=== PATIENT | male | born 1950 | race Caucasian/White ===

== ENCOUNTER 2024-02-18 09:43 | Outpatient (CLI) | payer MEDICARE, SELFPAY ==
--- NOTE | ~2024-02-18 | XR_ITS ---
XR abdomen/kub 1V 02/18/2024 10:09 INDICATION: Renal stone TECHNIQUE: KUB COMPARISON: None FINDINGS: Bowel gas pattern is normal. There is no evidence of free air, mass, organomegaly, ascites or obstruction. No abnormal calculi are seen. The bones appear intact. Moderate lumbar spondylosis . There are surgical changes of the left pelvis. IMPRESSION: 1: No acute abdominal abnormality identified. Reviewed, dictated and finalized at location B.
== END 2024-02-18 09:44 | disposition home or self-care (01) ==
LOC: ANHIMG 09:52
PROVIDERS: PCP Urology; Visit Provider Urology
DX: N20.0 Calculus of kidney (principal)
CPT/HCPCS: 74018

== ENCOUNTER 2025-03-02 11:17 | Outpatient (CLI) | payer MEDICARE, SELFPAY ==
--- NOTE | ~2025-03-02 | XR_ITS ---
XR abdomen/kub 1V Ordering provider: Gómez Johnson MD History: . Calcium kidney stone . Comparison: February 18, 2024 FINDINGS: BOWEL: Nonobstructive bowel gas pattern. ORGANOMEGALY: None. SIGNIFICANT PATHOLOGIC CALCIFICATIONS: None. OTHER: No free air is seen under the diaphragm. Postoperative changes in the left acetabulum. Bilater al hip severe osteoarthritic changes. Degenerative changes of the spine. Bilateral sacroiliacs. Pubic symphysitis. IMPRESSION: NO ACUTE ABDOMINAL FINDINGS. Reviewed, dictated and finalized at location A.
--- OUTSIDE RECORDS SUMMARY | 2025-03-02 12:04 | XMS_ITS | Encounter Summary ---
Author Name [facility] Organization [facility] Address [address] [place] [address] Care Team Providers Care Managing Director Atlas Name Role Phone BRIAN ANTON Unavailable Unavailable Insurance Providers: All historical and current Section Date Range: From patient's date of to the date document was created. This section includes the names of all active insurance providers for the patient. Insurance Provider Type of Coverage Plan Name Start of Policy Coverage End of Policy Coverage Group Number Member ID Insurance Provider's Telephone Number Policy Saini's Name Patient's Relationship to Policy Saini [place] SUPPLEMEN GE[place] MEDIC ARE SUPPL EMEMT Nov 27, 2023 [id number] [phone] MELINA, ADRIANA PATIENT ANTHEM [place] MEDICARE SUPPLEMEN GENA MEDIC ARE SUPPL EMEMT Nov 27, 2023 [id number] [phone] MELINA, ADRIANA PATIENT ANTHEM [place] MEDICARE SUPPLEMEN EGNA MEDIC ARE SUPPL EMENT Nov 27, 2023 [id number] [phone] MELINA, ADRIANA PATIENT [place] MED[place]ARE SUPPLEMEN GENA MEDIC ARE SUPPL EMEMT Nov 27, 2023 [id number] [phone] MELINA, ADRIANA PATIENT MEDICARE (WNR) MEDICARE (M) PART A Jun 27, 2013 PART A [id number] MELINA, ADRIANA PATIENT MEDICARE (WNR) MEDICARE (M) PART B Jun 27, 2013 PART B [id number] MELINA, ADRIANA PATIENT MEDICARE (WNR) MEDICARE (M) PART A Jun 27, 2013 PART A [id number] MELINA, ADRIANA PATIENT MEDICARE (WNR) MEDICARE (M) PART B Jun 27, 2013 PART B [id number] MELINA, ADRIANA PATIENT Selected Encounter This section includes the information on record at [place] for the Encounter. Date/Time Encounter Type Encounter Description Reason Provider Source Dec 07, 2024 09:30 AM HEARING AID, DIGIT, BIN, BTE AUDIOLOGY ICD-10-CM H90.3 Sensorineural hearing loss, bilateral CLEEK,NEFTALY L IHE Encounter Template Text not used by [place] Assessments - Encounter Diagnoses This section includes the primary and secondary diagnoses documented for the Encounter. Date/Time Primary/Secondary Diagnosis Diagnosis Name Provider Source Dec 07, 2024 09:58 AM PRIMARY Sensorineural hearing loss, bilateral STEVO,CLARIBEL SHAFFER [facility] Plan of Treatment: Future Appointments (+ 6 months) and Future Tests (+/- 45 days) The Plan of Treatment section includes future care activities for the patient [facility] [place] [facility] This section includes future appointments and future orders which are active, pending or scheduled. Future Appointments This section includes appointments that were scheduled to occur 6 months from the date of the Encounter, up to a maximum of 20 appointments. The data comes from all [facility]. Appointment Date/Time Appointment Type Appointme nt Facility Name Jan 14, 2025 10:30 AM AMBULATORY - SURGERY BAKARI N [facility] Jan 19, 2025 02:00 PM AMBULATORY - NONE [facility] Active, Pending, and Scheduled Orders This section includes a listing of several types of active, pending, and scheduled orders, including clinic medications orders, diagnostic test orders, procedure orders and consult orders; where the start date of the order is 45 days before the date of the Encounter or 45 days after the date of theEncounter. The data comes from all [facility]. Test Date/Time Test Type Test Details Facility Name Nov 26, 2024 11:17 AM Consult Order [facility]-COLONOSCOPY SUR[facility]ANCE OUTPT [id number] Cons Skein Yarn Dyer [facility] Social History: Smoking Status (Most current) and Tobacco Use (All prior to encounter date) This section includes the most current, and the historical, smoking and tobacco- related health factors from the [place] facility where the Encounter took place. Current Smoking Status This section includes the most current smoking, or tobacco-related health factor, from the [place] facility where the Encounter took place. Date/Time Current Smoking Status Comment Facil ity Sep 08, 2007 02:21 PM LIFETIME NON-USER OF TOBACCO [facility] Advance Directives: All historical and current Section Date Range: From patient's date of to the date document was created. This section includes ALL of a patient's completed or amended [place] Advance and Rescinded Directives. The entries below indicate that a directive exists for the patient, but an actual copy is not included with this document. The data comes from all [place] facilities. Date Advance Directives Provider Source Dec 30, 2019 ADVANCE DIRECTIVE DAKOTAH MELÉNDEZ ERICKA [facility] Encounter Notes: All associated encounter notes This section contains the clinical notes associated to the Encounter. Date/Time Encounter Note(s) Provider Source Dec 07, 2024 09:26 AM AUDIOLOGY PROGRESS NOTE: LOCAL TITLE: AUDIOLOGY HEARING AID ISSUE [place] STANDARD TITLE: AUDIOLOGY PROGRESS NOTE DATE OF NOTE: DEC 07, 2024@09:26 ENTRY DATE: DEC 07, 2024@09:26:38 AUTHOR: CLARIBEL WHITESIDE COSIGNER: NEFTALY BUSTAMANTE URGENCY: STATUS: COMPLETED AUDIOLOGY HEARING AID ISSUE [place] Has ADDENDA HEARING AID ISSUE- PHONAK S: C/O: reports for hearing aid issuance. Previous hearing aid user: [x] yes [] no H/O: Date of last hearing evaluation: 10/29/2024 Type of hearing loss established: [x] Sensorineural [] Mixed [] Conductive O: Otoscopic inspection revealed: Clear ear canals [x] R [x] L Non occluding wax [] R [] L Occluding wax [] R [] L Functional limitations [x] none Strengths: Motivated user Family Members/support person present during fitting: [] Yes [x] No A: Hearing aids were programmed for initial hearing aid fitting/issue. Hearing aid(s) issued: Phonak Right ear: Audeo I90-R SN: [id number] Fittin Left ear: Audeo I90-R SN: [id number] Fittin Dome size: [] Open: [x] Vented: small [] Power: [] Other: Salon Customer Experience Specialist: [] Standard: [x] Medium: 1M [] Power: Battery Size(s): [] Rechargeable with power pack accessory [x] Rechargeable [] 312 [] 13 [] 675 Additional Accessories: N/A Hearing Aids issued in [place] [x] Yes Supplies Ordered: Cerustops and small vented domes Real Ear Verification Results: [] Excellent [x] Good [] Fair [] Poor Volume controls: [x] Enabled [] Disabled [] N/A Push buttons: [x] Enabled []VC [] Disabled [] N/A Wireless function: [x] Enabled [] Disabled [] N/A Manual programs activated: [x] None [] Speech in noise [] Comfort in noise [] Zoomcontrol [] Speech in wind [] Public t-coil [] Mute [] Other: Patient received standardized instruction regarding: [x] Parts of the hearing aid(s) [x] Recommended use and wear time [x] Proper insertion/removal of hearing aid(s) [x] Volume control use of hearing aid(s) [x] Care/maintenance of hearing aid(s) [x] Battery management, life expectancy, hazard warning [x] Supply order process via [facility] [x] Hearing aid repair process via [facility] [x] Use of hearing protection in noise [x] Realistic expectations of hearing aids, including: [x] Expected adjustment process [x] Importance of consistent hearing aid use [x] Appropriate expectations for hearing aid feedback [x] Expected benefit from hearing aids, including situations in which communication may remain challenging, even with hearing aids Patient was given 20-30 minute HUMPHREY trial during today's appointment. Patient was instructed on how to pair the hearing aids to any assistive listening devices issued today, and was provided with information and support resources related to pairing the hearing aids to a cell phone, if applicable. Demonstration was provided for how to change any replaceable parts, including domes, wax guards, and tubes as applicable. Patient was provided with a copy of this clinic's [facility] booklet at today's appointment. Total time spent on this standardized orientation instruction: 15-30 minutes. Patient prognosis to treatment: [] Good [x] Fair [] Poor Comments: Hearing aids were paired to 's phone and to the Dexetra saad. Bluetooth connection and saad functionality was demonstrated. [facility] reported understanding. The [facility]'s backup pair of hearing aids: Right ear: Audeo [id number] SN: [id number] was sent in for repair and mailed back to the [facility] at the address on file. /kaity/ CLARIBEL WHITESIDE Audiology Printed Circuit Board Preassembler Signed: 12/07/2024 10:01 /kaity/ NEFTALY Beckford, ANNE-A CLINICAL PROGRAM AND RESEARCH COORDINATOR Cosigned: 12/07/2024 10:03 12/07/2024 ADDENDUM STATUS: COMPLETED This provider has reviewed this progress note, and is in agreement with the audiology encounter and clinical thinking of this progress note. /kaity/ NEFTALY Beckford, ANNE-A CLINICAL PROGRAM AND RESEARCH COORDINATOR Signed: 12/07/2024 10:03 CLARIBEL WHITESIDE [facility]
--- OUTSIDE RECORDS SUMMARY | 2025-03-02 12:04 | XMS_ITS | Clinical Summary ---
Author Organization [facility] Address [facility] [place] [address] Care Team Providers Care Complaint Specialist Name Role Phone Chester Richardson MD Primary Care Provider [phone] Avelino Balderas MD Unavailable [phone] Martin Newman MD Unavailable [phone] Mark Godwin MD Unavailable [phone] Allergies Active Allergy Reactions Criticality Noted Date Comments Lisinopril Cough 07/22/2023 Simvastatin Myalgias 03/24/2014 Tramadol Unknown 07/08/2024 Medications Cholecalciferol (VITAMIN D) 1000 UNIT tablet Take 1 tablet (1,000 Units total) by mouth daily. Active omeprazole 20 MG capsuleIndicati ons:acid reflux Take 1 capsule (20 mg total) by mouth daily. Indications: acid reflux 1 Active vitamin B-12 100 MCG tabletIndicatio ns:supplement Take 0.5 tablets (50 mcg total) by mouth daily. Indications: supplement 1 Active aspirin 81 MG chewable tabletIndicatio ns:heart health Chew 1 tablet (81 mg total) by mouth daily. Indications: heart health 1 Active Acetaminophen (TYLENOL ARTHRITIS EXT RELIEF OR)Indications: pain Take 650 mg by mouth every 6 (six) hours as needed (pain). Indications: pain 1 Active metoprolol succinate ER 25 MG 24 hr tabletIndicatio ns:blood pressure Take 0.5 tablets (12.5 mg total) by mouth daily. Indications: blood pressure Every other day (M,W,F,) 1 Active amLODIPine 10 MG tablet Take 1 tablet (10 mg total) by mouth daily. 1 Active Levothyroxine Sodium (EUTHYROX OR) Take by mouth every morning. 2 Active tamsulosin (FLOMAX) 0.4 MG CapIndications: BPH with obstruction/low er urinary tract symptoms Take 1 capsule (0.4 mg total) by mouth nightly. 90 capsule 2 2 Active atorvastatin (LIPITOR) 20 MG tablet Take 1 tablet (20 mg total) by mouth nightly at bedtime. Active gabapentin (NEURONTIN) 300 MG capsule Take 1 capsule (300 mg total) by mouth 2 (two) times daily. 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 Acute deep vein thrombosis ( DVT) of distal vein of left lower extremity ([facility]) 03/04/2019 Elevated platelet count 03/04/2019 Hypertension 02/23/2019 Hyperlipidemia 02/23/2019 Left axis deviation 02/23/2019 Cardiac arrest ([facility]) 01/26/2019 Acute deep vein thrombosis ( DVT) of tibial vein of left lower extremity ([facility]) 01/21/2019 Leukocytosis, unspecified type 01/19/2019 Anemia, unspecified type 01/19/2019 DVT (deep venous thrombosis) ([facility]) 0 01/19/2019 Anticoagulation management encounter 01/19/2019 Closed wedge compression fra cture of fifth thoracic vertebra, initial encounter ([facility]) 01/04/2019 Closed wedge compression fra cture of fourth thoracic vertebra, initial encounter ([facility]) 01/04/2019 Closed fracture of one rib o f right side with routine healing 01/04/2019 Closed fracture of one rib o f left side with routine healing 01/04/2019 Closed displaced fracture of proximal third of scaphoid of right wrist with routine healing 01/04/2019 Dislocation of hip, posterio r, closed, left, initial encounter 01/04/2019 Closed displaced fracture of posterior column of left acetabulum with routine healing 01/04/2019 Fall from roof, initial encounter 01/04/2019 Closed posterior dislocation of left hip, initia l encounter 01/04/2019 Resolved Problems Problem Noted Date Diagnosed Date Resolved Date Elevated PSA 05/01/2022 09/20/2022 Encounters Date Type Department Care Team Description 03/02/2025 Travel 02/25/2025 Telephone [facility] am [address] [place] [id number] Mark Godwin MD Appointment Request 02/10/2025 9:23 AM CDT - 02/10/2025 11:59 PM CDT Hospital Encounter [facility] [address] [place] [address] Nirav Rabago MD Probst, Samantha A, OSITO Dysphagia ([facility]) Discharge Disposition: Home or Self Care (Routine Discharge) 02/10/2025 [facility]phone [facility] [address] [place] [address] Nirav Rabago MD Results (Speech swallow) 02/10/2025 Travel 01/17/2025 10:05 AM CDT - 01/17/2025 11:59 PM CDT Hospital Encounter [facility] [address] [place] [address] Nirav Rabago MD Discharge Disposition: Home or Self Care (Routine Discharge) 01/17/2025 [facility] [address] [place] [address] Nirav Rabago MD Results (Esophagram) 01/17/2025 Travel 01/04/2025 10:00 AM CDT Office Visit [facility] [place] [address] [place] [address] Nirav Rabago MD Consult For Colonoscopy 01/04/2025 Scan [facility] Scanned, [facility] 01/04/2025 Travel from Last 3 Months Family History Medical History Relation Comments CABG Brother Acute myelogenous leukemia Daughter 1 Benign prostatic hyperplasia Father CHF Father Arthritis Mother Coronary artery disease Mother Benign prostatic hyperplasia Paternal Grandfathe r Hypertension Son Stent Cardiac Son Relation Status Comments Brother Daughter 1 (Age 14) Daughter 2 Alive Father Mother Paternal Grandfather Son Alive Social History Tobacco Use Types Packs/Day Years Used Date Smoking Tobacco: Never Passive Smoke Exposure: Never Smokeless Tobacco: Never Tobacco Cessation:Counseling Given: Not Answered Alcohol Use Standard Drinks/Week Comments No 0 (1 standard drink = 0.6 oz pur e alcohol) AUDIT-C Answer Date Recorded Frequency of Alcohol Consumption Never 01/08/2019 Average Number of Drinks 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019 Frequency of Binge Drinking 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12/25 PHQ-2 Answer Date Recorded Patient Health Questionnaire-2 Score 0 01/04/2025 Sex and Gender Information Value Date Recorded Sex Assigned at Male 01/04/2025 10:01 AM CDT 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 Gender Identity 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Sexual Orientation 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[place] , Agent [place]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No t on file 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Last Filed Vital Signs Vital Sign Reading Time Taken Comments Blood Pressure 130/72 01/04/2025 10:14 AM CDT Pulse 51 01/04/2025 10:05 AM CDT Temperature 36.7 C (98 F) 01/04/2025 10:05 AM CDT Respiratory Rate 16 01/04/2025 10:0 5 AM CDT Oxygen Saturation 97% 01/04/2025 10: 05 AM CDT Inhaled Oxygen Concentration - - Weight 107.3 kg (236 lb 9.6 oz) 025 10:05 AM CDT Height 175.3 cm (5' 9 ) 01/04/2025 10:0 5 AM CDT Body Mass Index 34.94 01/04/2025 10:05 AM CDT Plan of Treatment Upcoming Encounters Date Type Department Care Team (Latest Contact Info) Description 03/17/2025 9:28 AM CDT Hospital Encounter [facility] [address], [place] [address] Nirav Rabago MD [address] [facility], [address] [place] [id number] 03/17/2025 9:28 AM CDT - 03/17/2025 10:15 AM CDT [facility] [address], [place] [address] Nirav Rabago MD [address] [facility], [address] [place] [phone] COLONOSCOPY WITH BIOPSY AND/OR POLYPECTOMY 07/11/2025 9:45 AM CDT Office Visit [facility] [place] [address] [place] [address] Mark Godwin MD [address] [place] [address] Scheduled Procedures Name Priority Associated Diagnoses Date/Ti me COLONOSCOPY WITH BIOPSY Z86.0101 03/17/2025 9:28 AM CDT Health Maintenance Due Date Last Done Comments Hepatitis C 1968 Annual Medicare Wellness Visit 2013 ASCVD LDL 05/28/2022 05/28/2021 RSV Immunization or 60+ Years (1 - 1-dose 75+ series) 2023 COVID-19 Vaccine ( season) 2024 10/02/2022, 09/12/2021, 01/17/2021, Additional history exists DTaP, Tdap and Td Vaccines (2 - Td or Tdap) 12/24/2028 12/24/2018, 05/10/2009 Pneumococcal Vaccine: 50+ Years Completed 12/24/2018, 06/24/2016 Colorectal Cancer Screening FIT/FOBT (1 Year) Discontinued 01/24/2019, 01/18/2019, 01/15/2019 AAA SCREENING Completed 04/10/2020 Zoster Vaccines Completed 05/30/2020, 12/21/2019 PHQ-2 (Physician [place]) Completed 01/04/2025 Meningococcal B Vaccine Aged Out No l onger eligible based on patient's age to complete this topic Meningococcal Vaccine Aged Out No josr nithya eligible based on patient's age to complete this topic RSV Immunizations Under 20 Months Aged Out No longer eligible based on patient's age to complete this topic Goals Goal Patient Goal Type Associated Problems Recent Progress Patient-Stated? Author Autogenerat ed Goal Care Plan Autogenerated Problem No Celsa Noble RN Medical Devices Implanted Type Area Outside Deliverer Device Identifier Shelf Expiration Date Model / Serial / Lot Chest Wires Dental Theresa K Wire Checo 6 In X .045 In - [id number] Implanted:Qty: 1 on 01/08/2019 by Luana Chi MD at [facility] Right: Wrist [employer] 08/26/2027 [id number] / / [id number] K Wire Checo 6 In X .045 In - [id number] Implanted:Qty: 1 on 01/08/2019 by Luana Chi MD at [facility] Right: Wrist [employer] 11/26/2028 [id number] / / [id number] Mini Quickanchor Plus Implanted:Qty: 1 on 01/08/2019 by Horacio Begum MD at [facility] Right: Finger [employer] - [employer] 02/24/2020 [id number] / / [id number] Screws Implanted:Qty: 1 on 01/08/2019 by Luana Chi MD at [facility] Right: Finger AT2-[id number] / / N/A Screw Synthes 3.5 Cortex Stardrive 26mm - [id number] Implanted:Qty: 1 on 01/11/2019 by Thien Mirza MD at [facility] Left: Acetabulum SYNTHES 02.200.026 / / NA Screw Synthes 3.5 Cortex Stardrive 32mm - [id number] Implanted:Qty: 1 on 01/11/2019 by Thien Mirza MD at [facility] Left: Acetabulum SYNTHES 02.200.032 / / NA Screw Synthes 3.5 Cortex Stardrive 34mm - [id number] Implanted:Qty: 1 on 01/11/2019 by Thien Mirza MD at [facility] Left: Acetabulum SYNTHES 02.200.034 / / NA Plate Synthes 3.5 Low Profile Recon 8 Hole - [id number] Implanted:Qty: 1 on 01/11/2019 by Thien Mirza MD at [facility] Left: Acetabulum SYNTHES 245.028 / / NA Screw Synthes 3.5 Cortex Stardrive 55mm - [id number] Implanted:Qty: 1 on 01/11/2019 by Thien Mirza MD at [facility] Left: Acetabulum SYNTHES 02.200.055 / / NA Plate Synthes One-Third Tubular With Collar 3 Holes/37mm - [id number] Implanted:Qty: 2 on 01/11/2019 by Thien Mirza MD at [facility] Left: Acetabulum SYNTHES 241.33 / / NA Screw Synthes 3.5 Cortex Stardrive 30mm - [id number] Implanted:Qty: 4 on 01/11/2019 by Thien Mirza MD at [facility] Left: Acetabulum SYNTHES 02.200.030 / / NA Description:1 REMOVED/WASTED WRONG SIZE Screw Synthes 3.5 Cortex Stardrive 24mm - [id number] Implanted:Qty: 1 on 01/11/2019 by Thien Mirza MD at [facility] Left: Acetabulum SYNTHES 02.200.024 / / NA Explanted Type Area Outside Deliverer Device Identifier Shelf Expiration Date Model / Serial / Lot Pin Implanted:Qty: 3 Explanted:Qty: 3 on 01/08/2019 at [facility] Right: [id number] / / N/A Mini Drill Implanted:Qty: 1 Explanted:Qty: 1 on 01/08/2019 at [facility] Right: Finger 01/09/2019 [id number] / / N/A Screw Synthes 3.5 Cortex Stardrive 38mm - [id number] Explanted:Qty: 1 on 01/11/2019 by Thien Mirza MD at [facility] Left: Acetabulum SYNTHES 02.200.038 / / NA Description:WRONG SIZE 2.5 Mm Drill Bit Explanted:Qty: 1 on 01/11/2019 by Thien Mirza MD at [facility] Left: Acetabulum SYNTHES 315.92 / / NA Procedures Procedure Name Priority Date/Time Associated Diagnosis Comments XR SPEECH SWALLOW CHERRI (MODIFIED BARIUM SWALLOW STUDY AKA CASTILLO) Routine 02/10/2025 10:00 AM CDT Oropharyngeal dysphagia XR ESOPHAGRAM/BARIUM SWALLOW Routine 01/17/2025 11:20 AM CDT Oropharyngeal dysphagia LIPID PANEL Routine 05/28/2021 6:[address] ABD+PEL KIDNEY STONE Routine 04/10/2020 8:04 AM CDT Renal stone OCCULT BLOOD, FECES, SCREENING Nurse Collected Priority 01/24/2019 4:00 AM CDT from Last 3 Months or Most Recently Relevant to Health Maintenance Results * XR SPEECH SWALLOW CHERRI (MODIFIED BARIUM SWALLOW STUDY AKA CASTILLO) (02/10/2025 10:00 AM CDT) Anatomical Region Laterality Modality NA Radiographic Anne-Marie ging, Radiographic Imaging 02/10/2025 10:0 3 AM CDT Impressions 02/10/2025 10:41 AM CDT Impression: Swallowing abnormalities as described above The procedure was performed by Sariah Mendes RPA under the direct supervision of Jacob Alejandro MD. Dictated By: Sariah Mendes on 02/10/2025 10:03 AM Ordered By: NIRAV RABAGO Interpreted By: Sariah Mendes, 02/10/2025 10:03 AM Narrative 02/10/2025 10:41 [place] [address] DYNAMIC PHARYNGEAL FLUOROSCOPY WITH EVALUATION. INDICATIONS: Abnormal findings on Esophagram COMPARISON: Esophagram dated 01/17/2025 TECHNIQUE: Under fluoroscopic observation, in the lateral projection, the patient ingested multiple consistencies of food and liquid. Radiation dose reduction technique(s) were used. FINDINGS: After ingestion of multiple can consistencies of food and liquid, there is vallecular and piriform residue, to varying degrees on all consistencies. Deep penetration is seen on thin and nectar consistency. Decreased volume improves this continuation. Chin tuck technique had no affected. No evidence of aspiration. Permanent fluoroscopic and digitally recorded images were obtained and stored for review The procedure was performed in concert with speech pathology. Please see speech pathology report for further details and recommendations. Radiation exposure index: Dose Area Product 12/29/2007 mGy-cm2 Fluoroscopy time: 1:18 minutes and Total number of Fluoroscopic images: 840 Procedure Note Jacob Alejandro MD - 02/10/2025 [place] [address] DYNAMIC PHARYNGEAL FLUOROSCOPY WITH EVALUATION. INDICATIONS: Abnormal findings on Esophagram COMPARISON: Esophagram dated 01/17/2025 TECHNIQUE: Under fluoroscopic observation, in the lateral projection, thepatient ingested multiple consistencies of food and liquid. Radiation dosereduction technique(s) were used. FINDINGS: After ingestion of multiple can consistencies of food andliquid, there is vallecular and piriform residue, to varying degrees onall consistencies. Deep penetration is seen on thin and nectarconsistency. Decreased volume improves this continuation. Chin tucktechnique had no affected. No evidence of aspiration. Permanent fluoroscopic and digitally recorded images were obtained andstored for review The procedure was performed in concert with speech pathology. Please seespeech pathology report for further details and recommendations. Radiation exposure index: Dose Area Product 12/29/2007 mGy-cm2 Fluoroscopy time: 1:18 minutes and Total number of Fluoroscopic images:840 Impression: Swallowing abnormalities as described above The procedure was performed by Sariah Mendes RPA under the directsupervision of Jacob Alejandro MD. Dictated By: Sariah Mendes on 02/10/2025 10:03 AM Ordered By: NIRAV RABAGO Interpreted By: Sariah Mendes, 02/10/2025 10:03 AM Nirav Rabago MD FLUOROSCOPY Final Result * XR ESOPHAGRAM/BARIUM SWALLOW (01/17/2025 11:20 AM CDT) Anatomical Region Laterality Modality Chest, Abdomen Radiographic Anne-Marie ging, Radiographic Imaging 01/17/2025 12:3 8 PM CDT Impressions 01/17/2025 2:17 PM CDT IMPRESSION: 1. Small hiatal hernia. 2. Deep laryngeal penetration with suggestion of aspiration as described above. The procedure was performed by Sariah Mendes RPA, under the direct supervision of Dr. Lc Mcneil. Dictated By: Sariah Mendes on 01/17/2025 12:38 PM Ordered By: NIRAV RABAGO Interpreted By: Sariah Mendes, 01/17/2025 12:38 PM Narrative 01/17/2025 2:17 PM CDT [address] [address] ESOPHOGRAM. INDICATIONS: dysphagia COMPARISON: No existing relevant imaging study available TECHNIQUE: Under pulsed fluoroscopic observation, the patient ingested effervescent crystals, thin barium, thick barium, and a 13 mm barium tablet. Radiation dose reduction technique(s) were used. FINDINGS: Limited evaluation demonstrates deep laryngeal penetration. Subsequent imaging suggests silent aspiration. The esophagus is normal in course and caliber with no mucosal masses or strictures. Esophageal motility is normal. There is a small sliding hiatal hernia. Gastroesophageal reflux was not seen on today's study. Radiation exposure index: Dose Area Product 7613mGy-cm2 Fluoroscopy time 0:48 minutes and Total number of Fluoroscopic images: 79 ? Permanent fluoroscopic images were obtained and stored for review Procedure Note Lc Mcneil DO - 01/17/2025 [place] [address] [place] [address] ESOPHOGRAM. INDICATIONS: dysphagia COMPARISON: No existing relevant imaging study available TECHNIQUE: Under pulsed fluoroscopic observation, the patient ingestedeffervescent crystals, thin barium, thick barium, and a 13 mm bariumtablet. Radiation dose reduction technique(s) were used. FINDINGS: Limited evaluation demonstrates deep laryngeal penetration.Subsequent imaging suggests silent aspiration. The esophagus is normal in course and caliber with no mucosal masses orstrictures. Esophageal motility is normal. There is a small sliding hiatal hernia. Gastroesophageal reflux was notseen on today's study. Radiation exposure index: Dose Area Product 7613mGy-cm2 Fluoroscopy time 0:48 minutes and Total number of Fluoroscopic images:79 ? Permanent fluoroscopic images were obtained and stored for review IMPRESSION: 1. Small hiatal hernia. 2. Deep laryngeal penetration with suggestion of aspiration as describedabove. The procedure was performed by Sariah Mendes RPA, under the directsupervision of Dr. cL Mcneil. Dictated By: Sariah Mendes on 01/17/2025 12:38 PM Ordered By: NIRAV RABAGO Interpreted By: Sariah Mendes, 01/17/2025 12:38 PM us Nirav Rabago MD FLUOROSCOPY Final Result * LIPID PANEL (05/28/2021 6:15 PM CDT) CHOLESTEROL 120 MG/DL 05/28/2021 6:54 PM CDT [facility] Comment:DESIRABLE: <200 TRIGLYCERIDES 105 MG/DL 05/28/2021 6:54 PM CDT [facility] Comment:<150 NORMAL HDL 40 >39 MG/DL 05/28/2021 6:54 PM CDT [facility] LDL (CALCULATED) 59 MG/DL 05/28/20 6:54 PM CDT [facility] Comment:<100 OPTIMAL VLDL CALCULATION 21 MG/DL 05/28/20 6:54 PM CDT [facility] Comment:REFERENCE RANGE NOT ESTABLISHED CHOL/HDL RATIO 3.0 05/28/2021 6:54 PM CDT [facility] Comment:REFERENCE RANGE NOT ESTABLISHED LDL/HDL 1.5 05/28/2021 6:54 PM CDT [facility] Comment:REFERENCE RANGE NOT ESTABLISHED NON HDL CHOLESTEROL 80 MG/DL 05/28/2021 6:54 PM CDT [facility] Comment:REFERENCE RANGE NOT ESTABLISHED 05/28/2021 6:15 PM CDT us Vince Echevarria MD LABORATORY Final Resul t [facility] [address] [place] [address], [id number] * CT ABD+PEL KIDNEY STONE (04/10/2020 8:04 AM CDT) Anatomical Region Laterality Modality Abdomen Computed Tomogra phy 04/10/2020 10:0 2 AM CDT Impressions 04/10/2020 10:10 AM CDT IMPRESSION: 1. Routine CT of the abdomen and pelvis without contrast. No comparison. Radiation dose reduction technique was utilized. 2. There are no acute findings. There is an 8.2 mm calculus in the lower pole right kidney without obstruction. No left-sided renal calculi or urinary bladder calculi. 3. Normal appendix and normal gallbladder. Small hiatal hernia. 4. Mild fatty infiltration of the liver without mass. All other visualized noncontrast visceral structures are within normal limits. No free fluid or free air. 5. No bowel obstruction. Atherosclerotic normal-sized aorta. No pathologic lymphadenopathy. Numerous sigmoid diverticuli without diverticulitis. 6. Lung bases with mild scar formation. No infiltrate or effusion. Advanced coronary artery calcifications.. Degenerative change in lumbar spine. Intact left iliac bone hardware. Fragmentation of the anterior superior iliac spine consistent with patient's given history of bone graft procedure. Mild overlying soft tissue swelling/edema. Interpreted By: Angy Pappas, 04/10/2020 10:02 AM Narrative 04/10/2020 10:10 AM CDT IMAGING STUDIES: CT ABD+PEL KIDNEY STONE DATE: 04/10/2020 7:54 AM CLINICAL HISTORY: Flank pain, recurrent stone disease suspected . Procedure Note Qasim Pappas MD - 04/10/2020 IMAGING STUDIES: CT ABD+PEL KIDNEY STONE DATE: 04/10/20207:54 AM CLINICAL HISTORY: Flank pain, recurrent stone disease suspected . IMPRESSION: 1. Routine CT of the abdomen and pelvis without contrast. Nocomparison. Radiation dose reduction technique was utilized. 2. There are no acute findings. There is an 8.2 mm calculus in thelower pole right kidney without obstruction. No left-sided renal calculi or urinary bladder calculi. 3. Normal appendix and normal gallbladder. Small hiatal hernia. 4. Mild fatty infiltration of the liver without mass. All othervisualized noncontrast visceral structures are within normal limits. No free fluidor free air. 5. No bowel obstruction. Atherosclerotic normal-sized aorta. No pathologic lymphadenopathy. Numerous sigmoid diverticuli without diverticulitis. 6. Lung bases with mild scar formation. No infiltrate or effusion. Advanced coronary artery calcifications.. Degenerative change in lumbar spine. Intact left iliac bone hardware. Fragmentation of the anterior superior iliac spine consistent with patient's given history of bonegraft procedure. Mild overlying soft tissue swelling/edema. Interpreted By: Angy Pappas, 04/10/2020 10:02 AM Avelino Balderas MD CT Final Result * (ABNORMAL) OCCULT BLOOD, FECES, SCREENING (01/24/2019 4:00 AM CDT) OCCULT BLOOD FECAL NEGATIVE NEGATIVE 01/25/2019 11:18 AM CDT [facility] COLLECTION DATE [id number] 01/25/2019 11:18 AM CDT [facility] OCCULT BLOOD SPEC 2 NO SAMPLE RECEIVED (A) NEGATIVE 01/25/2019 11:18 AM CDT [facility] OCCULT BLOOD SPEC 3 NO SAMPLE RECEIVED (A) NEGATIVE 01/25/2019 11:18 AM CDT [facility] STOOL SPECIMEN / Unknown 01/24/2019 4:00 AM CDT Ashutosh Xiao MD BODY FLUIDS AND STOOLS ORDERABLE S Final Result [facility] [address] [place] [address], [id number] from Last 3 Months or Most Recently Relevant to Health Maintenance Additional Health Concerns Active Problems Noted Date Diagnosed Date Autogenerated Problem 02/09/2025 Insurance MEDICARE [facility] MEDICARE Advance Directives Documents on File Type Date Recorded Patient Readiness Paraprofessional Expl anation Power of Screen Print Operator 01/08/2019 10:25 AM 11/25 POA FOR HEALTH CARE * Full Code (Latest Code Status on File) Date Activated Date Inactivated Comments 06/10/2021 12:38 PM * Full Code Date Activated Date Inactivated Comments 06/03/2021 8:42 AM 06/05/2021 7:32 PM * Full Code Date Activated Date Inactivated Comments 05/29/2021 6:04 PM 06/02/2021 3:29 PM * Full Code Date Activated Date Inactivated Comments 05/12/2020 12:59 PM 05/12/2020 4:44 PM * Full Code Date Activated Date Inactivated Comments 01/04/2019 4:56 PM 01/29/2019 3:53 PM Care Teams Complaint Specialist Relationship Specialty Start Date End Date Chester Richardson MD [address] [place] [id number] PCP - General INTERNAL MEDICINE 02/18/19 Avelino Balderas MD [address] [place] [address] Physician UROLOGY 04/12/20 Martin Newman MD [address] [place] [id number] FAMILY PRACTICE 12/01/24 Mark Godwin MD [address] [place] [id number] Consulting Physician CARDIOVASCULAR DISEASE 02/25/25
--- OUTSIDE RECORDS SUMMARY | 2025-03-02 12:04 | XMS_ITS | Continuity of Care Document ---
Author Name [facility] Organization [facility] Care Team Providers Care Clinical Assistant Name Role Phone [facility] Unavailable Unavailable Problems Combined list of problems from Department of Defense and [facility] facilities. It does not include entries that were removed or entered in error. Problem Status Onset Date Problem Type Date of Resolution Comments Source Aneurysm of ascending aorta Active Condition [facility] Benign Prostatic Hypertrophy with Outflow Obstruction ([facility] [place] [id number]) Active Condition [facility] CAD - Coronary Artery Disease ([facility] [place] [id number]) Active Condition Jun 23, 2023 Entered By: BRIAN ANTON Comment: 3 vessel CABG 05/29/21, SVG to 1st obtuse marginal, SVG to posterior descending, and left IM to LADSep 2022 Entered By: BRIAN ANTON Comment: Echo on07/16/[address] William [id number]% mild concentric LVH with grade 1 diastolic dysfuction, mod to severe LAE and mild aortic root dilation. [facility] Carotid artery stenosis Active Condition Jun 23, 2023 Entered By: BRIAN ANTON Comment: 05/21/21 0-39% stenosis on bilateral ICA [facility] Chronic kidney disease stage 3 Active Condition [facility] Edema of lower leg Active Condition [facility] Exposure to potentially hazardous substance Active Condition [facility] Folic acid deficiency Active Condition [facility] Hearing Loss ([facility] [place] [id number]) Active Condition [facility] History of deep vein thrombosis Active Condition Jun 23, 2023 Entered By: BRIAN ANTON Comment: December 2018 after orthopedic sugery - ORIF left acetabular fx, ORIF right scaphoid fx after a fall on 01/04/19 [facility] Hyperlipidemia Active Condition [facility] Hypertension Active Condition [facility] Hypothyroidism ([facility] [place] [id number]) Active Condition [facility] Lymphocytosis Active Condition Aug Entered By: BRIAN ANTON Comment: 08/12/23 seen by oncologist, Dr. Johnathon Faith for lymphocytes 3000 and low IgA level. plan to do PBS, flow cytometry and repeat immunoglobulin level.Jul 13, 2024 Entered By: BRIAN ANTON Comment: 06/16/[address] Faith - clinically stable. PBS today and FU in 1 yr. 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 Enamorado - TA x1, sigmoid diverticulosis, repeat in 3 yrs [facility] Pulmonary hypertension Active Condition [facility] Renal stone Active Condition Jun 23, 2023 Entered By: BRIAN ANTON Comment: s/p multiple lithotripsies [facility] Sleep apnea Active Condition Jun 23, 2023 Entered By: BRIAN ANTON Comment: on CPAP [facility] Tremor Active Condition [facility] Vitamin B12 Deficiency ([facility] [place] [id number]) Active Condition [facility] Vitamin D Deficiency ([facility] [place] [id number]) Active Condition [facility] Allergic rhinitis * (ICD-9-CM 477.9) Inactive Condition 12/24/2018 [facility] Calculus of Kidney (ICD-9-CM 592.0) Inactive Condition 12/24/2018 [facility] Hip: arthralgia (pain on rotation, pain in groin) * Inactive Condition 12/24/2018 [facility] Hyperlipidemia * (ICD-9-CM 272.4) Inactive Condition 12/24/2018 [facility] Hypertension * (ICD-9-CM 401.9) Inactive Condition 12/24/2018 [facility] Low Back Pain * (ICD-9-CM 724.2) Inactive Condition 12/24/2018 [facility] Obstructive sleep apnea syndrome Inactive Condition 06/23/2023 [facility] Sciatica * (ICD-9-CM 724.3) Inactive Condition 12/24/2018 [facility] Vitamin D deficiency (SNOMED CT [id number]) Inactive Condition 12/24/2018 [facility] Diagnosis: ICD-10-CM H40.003 Preglaucoma, unspecified, bilateral Active Diagnosis [facility] Diagnosis: ICD-10-CM H90.3 Sensorineural hearing loss, bilateral Active Diagnosis [facility] Diagnosis: ICD-10-CM H90.6 Mixed conductive and sensorineural hearing loss, bilateral Active Diagnosis [facility] Diagnosis: ICD-10-CM I10 Essential (primary) hypertension Active Diagnosis [facility] Diagnosis: ICD-10-CM H90.A31 Mix cndct/snrl hear loss,uni,r ear w rstrcd hear cntra side Active Diagnosis [facility] Diagnosis: ICD-10-CM L57.0 Actinic keratosis Active Diagnosis [facility] Diagnosis: ICD-10-CM 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 Medication Details Route Status Patient Instructions Prescription Expires Prescription Number Last Dispense Date Ordering Provider Order Date Order Qty Source AMLODIPINE BESYLATE 10MG TAB TAKE ONE TABLET BY MOUTH ONCE A DAY FOR HIGH BLOOD PRESSURE ORAL ACTIVE 10/02/2025 [id number] NONI ANTON 2024 90 [facility] AMLODIPINE BESYLATE 10MG TAB TAKE ONE TABLET BY MOUTH ONCE A DAY FOR HIGH BLOOD PRESSURE ORAL DISCONT INUED 10/02/2024 [id number] NONI ANTON 2022 90 [facility] ASPIRIN 81MG TAB,EC TAKE ONE TABLET BY MOUTH ONCE A DAY ORAL ACTIVE HERNANDEZ -BORIS MELENDEZ A W 2019 [facility] ATORVASTATI N CA 40MG TAB TAKE ONE-HALF TABLET BY MOUTH EVERY EVENING FOR HIGH CHOLESTE ROL ORAL ACTIVE 10/02/2025 [id number] 5 NONI ANTON 2024 45 [facility] ATORVASTATI N CA 40MG TAB TAKE ONE-HALF TABLET BY MOUTH EVERY EVENING FOR HIGH CHOLESTE ROL ORAL DISCONT INUED 10/02/2024 [id number] 4 NONI ANTON 2022 45 [facility] CHOLECALCIF POLA 25MCG (1,000UNIT) TAB TAKE ONE TABLET BY MOUTH ONCE A DAY ORAL ACTIVE NONI ANTON 2022 [facility] CYANOCOBALA MIN 1000MCG TAB TAKE ONE TABLET BY MOUTH ONCE A DAY ORAL ACTIVE BORIS ARELLANO 2020 [facility] FLUOROURACI L 5% CREAM,TOP APPLY THIN FILM TO AFFECTED AREA(S) TWICE DAILY AVOID SUN EXPOSURE . FOLLOW DIRECTIO NS CAREFULL Y FOR PROPER HANDLING /DISPOSA L. WAIT UNTIL THE TREATED AREA ON BRIDGE OF NOSE HAS HEALED. EXPECT REDNESS AND IRRITATI ON AVOID SUN EXPOSURE . FOLLOW DIRECTIO NS CAREFULL Y FOR PROPER HANDLING /DISPOSA L. WAIT UNTIL THE TREATED AREA ON BRIDGE OF NOSE HAS HEALED. EXPECT REDNESS AND IRRITATI ON TOPICA L 02/06/2024 [id number] DAISY MOORE 2023 40 [facility] FOLIC ACID 0.4MG TAB TAKE ONE TABLET BY MOUTH ONCE A DAY ORAL ACTIVE NONI ANTON 2022 [facility] GABAPENTIN 300MG CAP TAKE ONE CAPSULE BY MOUTH THREE TIMES A DAY -- MAY CAUSE DROWSINE SS ORAL ACTIVE 03/23/2025 [id number] 5 RIRI DICKEY 2024 90 [facility] GABAPENTIN 300MG CAP TAKE ONE CAPSULE BY MOUTH THREE TIMES A DAY ORAL 11/17/2024 [id number] 4 RIRI DICKEY DEENA 2023 90 [facility] LEVOTHYROXI NE NA 100MCG TAB (SYNTHROID) TAKE ONE TABLET BY MOUTH EVERY MORNING BEFORE A MEAL FOR HYPOTHYR OIDISM TAKE 30 MINUTES BEFORE FOOD. TAKE SEPARATE LY FROM ALL OTHER MEDICATI ONS. ORAL DISCONT INUED (EDIT) 10/02/2024 [id number] 4 NONI ANTON 2022 90 [facility] LEVOTHYROXI NE NA 88MCG TAB TAKE ONE TABLET BY MOUTH EVERY MORNING BEFORE A MEAL FOR HYPOTHYR OIDISM TAKE 30 MINUTES BEFORE FOOD. TAKE SEPARATE LY FROM ALL OTHER MEDICATI ONS. ORAL ACTIVE 10/02/2025 [id number] 5 NONI ANTON 2023 90 [facility] METOPROLOL SUCCINATE 25MG TAB,SA TAKE ONE-HALF TABLET BY MOUTH ONCE A DAY FOR HIGH BLOOD PRESSURE SWALLOW WHOLE, DO NOT CRUSH OR CHEW (TABLETS MAY BE CUT IN HALF). ORAL ACTIVE 10/02/2025 [id number] 5 NONI ANTON 2023 45 [facility] METOPROLOL SUCCINATE 25MG TAB,SA TAKE ONE-HALF TABLET BY MOUTH ONCE A DAY FOR HIGH BLOOD PRESSURE SWALLOW WHOLE, DO NOT CRUSH OR CHEW (TABLETS MAY BE CUT IN HALF). ORAL DISCONT INUED 10/02/2024 [id number] 4 NONI ANTON 2022 45 [facility] OMEPRAZOLE 20MG CAP,EC TAKE 1 CAPSULE BY MOUTH ONCE A DAY ORAL ACTIVE HERNANDEZ -MELENDEZ,RIT A W 2021 [facility] TAMSULOSIN HCL 0.4MG CAP TAKE ONE CAPSULE BY MOUTH EVERY EVENING FOR BENIGN PROSTATI C HYPERPLA ALAINA APPROXIM ATELY 30 MINUTES AFTER THE SAME MEAL EACH DAY ORAL ACTIVE 10/02/2025 [id number] 4 NONI ANTON 2023 90 [facility] [facility] TAMSULOSIN HCL 0.4MG CAP TAKE ONE CAPSULE BY MOUTH EVERY EVENING FOR BENIGN PROSTATI C HYPERPLA ALAINA APPROXIM ATELY 30 MINUTES AFTER THE SAME MEAL EACH DAY ORAL DISCONT INUED 10/02/2024 [id number] 4 NONI ANTON 2022 90 [facility] Allergies, Adverse Reactions, Alerts Combined list of allergies from Department of Defense and [facility] facilities. It does not include entries that were removed or entered in error. Substance Category Reaction Severity Reaction type Status Date Reported Comments Source LISINOPRIL Propensity to adverse reactions to drug (finding) Hyperkalemi a MODERATE active 1 [facility] SIMVASTATIN Propensity to adverse reactions to drug (finding) Cramp active 4 [facility] Immunizations Combined list of available immunizations from the Department of Defense and Veterans Affairs facilities. Immunization Series Date Given Administered By Site Reaction Lot Number CVX Code Drug Quantitative Equity Head Status Comments Source INFLUENZA, HIGH-DOSE, TRIVALENT, PF 2023 MIGUEL DIOP LEFT DELTO ID [id number] 135 complet ed [facility] INFLUENZA, HIGH-DOSE, QUADRIVALENT 2022 MIGUEL DIOP RIGHT DELTO ID [id number] 197 complet ed [facility] INFLUENZA, UNSPECIFIED FORMULATION 2021 88 complet ed HISTORICA L INFORMATI ON - FROM PATIENT'S RECALL, [facility] INFLUENZA, HIGH-DOSE, QUADRIVALENT 1 2021 197 complet ed HISTORICA L INFORMATI ON - FROM OTHER REGISTRY, [facility] COVID-19 (MODERNA), MRNA, LNP-S, BIVALENT, PF, 50 MCG/0.5 ML OR 25MCG/0.25 ML DOSE 4 2021 229 complet ed HISTORICA L INFORMATI ON - FROM OTHER REGISTRY, [facility] INFLUENZA, INJECTABLE, QUADRIVALENT, PRESERVATIVE FREE 2021 150 complet ed [facility] COVID-19 (MODERNA), MRNA, LNP-S, PF, 100 MCG/0.5ML DOSE OR 50 MCG/0.25ML DOSE 3 2020 207 complet ed [facility] COVID-19 (MODERNA), MRNA, LNP-S, PF, 100 MCG/0.5ML DOSE OR 50 MCG/0.25ML DOSE 2 2020 207 complet ed [facility] COVID-19 (MODERNA), MRNA, LNP-S, PF, 100 MCG/0.5ML DOSE OR 50 MCG/0.25ML DOSE [address] [facility] INFLUENZA, INJECTABLE, QUADRIVALENT, PRESERVATIVE FREE 2019 150 complet ed [facility] ZOSTER RECOMBINANT 2 2019 187 complet ed [facility] ZOSTER RECOMBINANT 1 2019 187 [facility] INFLU[facility], INJECTABLE, QUADRIVALENT, PRESERVATIVE FREE 2018 150 complet ed [facility] PNEUMOCOCCAL POLYSACCHARID E PPV23 2018 33 complet [facility] TDAP 2018 115 complet [facility] INFLUENZA, INJECTABLE, QUADRIVALENT, PRESERVATIVE FREE 2017 150 complet ed [facility] INFLUENZA, INJECTABLE, QUADRIVALENT, PRESERVATIVE FREE 2016 150 complet ed [facility] INFLUENZA, SEASONAL, INJECTABLE, PRESERVATIVE FREE 2016 140 complet ed [facility] PNEUMOCOCCAL CONJUGATE PCV 13 2015 133 complet ed [facility] INFLUENZA, UNSPECIFIED FORMULATION 2014 88 complet ed [facility] INFLUENZA, SEASONAL, INJECTABLE, PRESERVATIVE FREE 2013 140 complet ed [facility] INFLUENZA, UNSPECIFIED FORMULATION 2011 88 complet ed [facility] INFLUENZA, SEASONAL, INJECTABLE, PRESERVATIVE FREE 2011 140 complet ed [facility] INFLUENZA, SEASONAL, INJECTABLE, PRESERVATIVE FREE 2011 140 complet ed [facility] INFLUENZA, UNSPECIFIED FORMULATION 2009 88 complet ed [facility] INFLUENZA, UNSPECIFIED FORMULATION 2009 88 complet ed [facility] INFLUENZA, UNSPECIFIED FORMULATION 2009 88 complet ed [facility] INFLUENZA, UNSPECIFIED FORMULATION 2009 88 complet [facility]-H1N 1-09, ALL FORMULATIONS 2009 128 complet ed [facility] TD(ADULT) UNSPECIFIED FORMULATION 2008 139 complet ed [facility] INFLUENZA, UNSPECIFIED FORMULATION 2006 88 complet ed [facility] Results Combined list of recent chemistry, hematology and other laboratory results from Department of Defense and [facility], ranging from 15 months to all on record, depending upon the facility. Order Name Results Value Reference Range Date Interpretation Specimen Comments Source PSA (MA) PROSTATE SPECIFIC AG [MASS/VOLUM E] IN SERUM OR PLASMA 1.6 ng/mL 0.0 - 4.0 09/21 Specimen Type: SERUM No comment entered. Ordering Provider: NONI ANTON Report Released Date/Time : Oct 02, 2023 11:37 AM Reporting Lab: [address] [phone] 8 Performin g Lab: [address] [phone] [facility] TSH (PA-PB) THYROTROPIN [UNITS/VOLU ME] IN SERUM OR PLASMA 0.160 u[IU]/mL 0.470 - 5.000 09/21 L Specimen Type: SERUM No comment entered. Ordering Provider: NONI ANTON Report Released Date/Time : Oct 02, 2023 11:37 AM Reporting Lab: [address] [phone] 8 Performin g Lab: [place] [phone] 8 [facility] TSH (PA-PB) THYROXINE (T4) FREE [MASS/VOLUM E] IN SERUM OR PLASMA 1.35 ng/mL 0.70 - 1.48 09/21 Specimen Type: SERUM No comment entered. Ordering Provider: NONI ANTON Report Released Date/Time : Oct 02, 2023 11:37 AM Reporting Lab: [address] [phone] 8 Performin g Lab: [place] [id number] [place] [address] HEPATIC FUNCTION PANEL (MA) PROTEIN [MASS/VOLUM E] IN SERUM OR PLASMA 7.4 g/dL 6.0 - 8.6 09/21 Specimen Type: PLASMA No comment entered. Ordering Provider: NONI ANTON Report Released Date/Time : Oct 02, 2023 11:37 AM Reporting Lab: [address] [phone] 8 Performin g Lab: [address] [phone] 8 [facility] HEPATIC FUNCTION PANEL (MA) ALBUMIN [MASS/VOLUM E] IN SERUM OR PLASMA 4.2 g/dL 3.4 - 5.0 09/21 Specimen Type: PLASMA No comment entered. Ordering Provider: NONI ANTON Report Released Date/Time : Oct 02, 2023 11:37 AM Reporting Lab: [address] [phone] 8 Performin g Lab: [place] [phone] 8 [facility] HEPATIC FUNCTION PANEL (MA) BILIRUBIN.T OTAL [MASS/VOLUM E] IN SERUM OR PLASMA 1.2 mg/dL 0.2 - 1.2 09/21 Specimen Type: PLASMA No comment entered. Ordering Provider: NONI ANTON Report Released Date/Time : Oct 02, 2023 11:37 AM Reporting Lab: [address] [phone] 8 Performin g Lab: [address] [phone] 8 [facility] HEPATIC FUNCTION PANEL (MA) ALKALINE PHOSPHATASE [ENZYMATIC ACTIVITY/VO LUME] IN SERUM OR PLASMA 99 U/L 40 - 150 09/21 Specimen Type: PLASMA No comment entered. Ordering Provider: NONI ANTON Report Released Date/Time : Oct 02, 2023 11:37 AM Reporting Lab: [address] [phone] 8 Performin g Lab: [address] [phone] 8 [facility] HEPATIC FUNCTION PANEL (MA) ASPARTATE AMINOTRANSF ERASE [ENZYMATIC ACTIVITY/VO LUME] IN SERUM OR PLASMA 19 U/L 5 - 34 09/21 Specimen Type: PLASMA No comment entered. Ordering Provider: NONI ANTON Report Released Date/Time : Oct 02, 2023 11:37 AM Reporting Lab: [place] [phone] Performin g Lab: [facility] [address] [facility] [phone] 8 [facility] HEPATIC FUNCTION PANEL (MA) ALANINE AMINOTRANSF ERASE [ENZYMATIC ACTIVITY/VO LUME] IN SERUM OR PLASMA 22 U/L 8 - 40 09/21 Specimen Type: PLASMA No comment entered. Ordering Provider: NONI ANTON Report Released Date/Time : Oct 02, 2023 11:37 AM Reporting Lab: [facility] [address] [place] [phone] 8 Performin g Lab: [facility] [address] [place], [place] [phone] 8 [facility] HEPATIC FUNCTION PANEL (MA) GLOBULIN [MASS/VOLUM E] IN SERUM BY CALCULATION 3.2 09/21 Specimen Type: PLASMA No comment entered. Ordering Provider: NONI ANTON Report Released Date/Time : Oct 02, 2023 11:37 AM Reporting Lab: [place] [phone] 8 Performin g Lab: [address] 8 [facility] HEPATIC FUNCTION PANEL (MA) BILIRUBIN.C ONJUGATED [MASS/VOLUM E] IN SERUM OR PLASMA 0.5 mg/dL 0.0 - 0.5 09/21 Specimen Type: PLASMA No comment entered. Ordering Provider: NONI ANTON Report Released Date/Time : Oct 02, 2023 11:37 AM Reporting Lab: [facility] [address] [place] [phone] 8 Performin g Lab: [place] [phone] 8 [facility] HEPATIC FUNCTION PANEL (MA) ALBUMIN/JUAN BULIN [MASS RATIO] IN SERUM OR PLASMA 1.3 09/21 Specimen Type: PLASMA No comment entered. Ordering Provider: NONI ANTON Report Released Date/Time : Oct 02, 2023 11:37 AM Reporting Lab: [facility] [address] [place] [phone] 8 Performin g Lab: [place] [phone] 8 [facility] BASIC METABOLIC PANEL CREATININE [MASS/VOLUM E] IN SERUM OR PLASMA 1.6 mg/dL .7 - 1.3 09/21 H Specimen Type: PLASMA No comment entered. Ordering Provider: NONI ANTON Report Released Date/Time : Oct 02, 2023 11:37 AM Reporting Lab: [facility] [address] [place] [phone] 8 Performin g Lab: [address] [phone] 8 [facility] BASIC METABOLIC PANEL UREA NITROGEN [MASS/VOLUM E] IN SERUM OR PLASMA 19 mg/dL 9.0 - 25.0 09/21 Specimen Type: PLASMA No comment entered. Ordering Provider: NONI ANTON Report Released Date/Time : Oct 02, 2023 11:37 AM Reporting Lab: [address] [phone] 8 Performin g Lab: [place] [phone] 8 [facility] BASIC METABOLIC PANEL GLUCOSE [MASS/VOLUM E] IN SERUM OR PLASMA 93 mg/dL 72 - 99 09/21 Specimen Type: PLASMA No comment entered. Ordering Provider: NONI ANTON Report Released Date/Time : Oct 02, 2023 11:37 AM Reporting Lab: [address] [phone] 8 Performin g Lab: [address] [phone] 8 [facility] BASIC METABOLIC PANEL SODIUM [MOLES/VOLU ME] IN SERUM OR PLASMA 139 meq/L 136 - 145 09/21 Specimen Type: PLASMA No comment entered. Ordering Provider: NONI ANTON Report Released Date/Time : Oct 02, 2023 11:37 AM Reporting Lab: [address] [phone] 8 Performin g Lab: [address] [phone] 8 [facility] BASIC METABOLIC PANEL POTASSIUM [MOLES/VOLU ME] IN SERUM OR PLASMA 5.0 meq/L 3.5 - 5 09/21 Specimen Type: PLASMA No comment entered. Ordering Provider: NONI ANTON Report Released Date/Time : Oct 02, 2023 11:37 AM Reporting Lab: [address] [phone] 8 Performin g Lab: [address] [phone] 8 [facility] BASIC METABOLIC PANEL CHLORIDE [MOLES/VOLU ME] IN SERUM OR PLASMA 105 meq/L 98 - 107 09/21 Specimen Type: PLASMA No comment entered. Ordering Provider: NONI ANTON Report Released Date/Time : Oct 02, 2023 11:37 AM Reporting Lab: [address] [phone] 8 Performin g Lab: [address] [phone] 8 [facility] BASIC METABOLIC PANEL CARBON DIOXIDE, TOTAL [MOLES/VOLU ME] IN SERUM OR PLASMA 26 meq/L 22 - 31 09/21 Specimen Type: PLASMA No comment entered. Ordering Provider: NONI ANTON Report Released Date/Time : Oct 02, 2023 11:37 AM Reporting Lab: [address] [phone] 8 Performin g Lab: [address] [phone] 8 [facility] BASIC METABOLIC PANEL CALCIUM [MASS/VOLUM E] IN SERUM OR PLASMA 9.7 mg/dL 8.4 - 10.4 09/21 Specimen Type: PLASMA No comment entered. Ordering Provider: NONI ANTON Report Released Date/Time : Oct 02, 2023 11:37 AM Reporting Lab: [address] [phone] 8 Performin g Lab: [address] [phone] 8 [facility] BASIC METABOLIC PANEL GLOMERULAR FILTRATION RATE/1.73 SQ M.PREDICTED [VOLUME RATE/AREA] IN SERUM, PLASMA OR BLOOD BY CREATININE- BASED FORMULA (CKD-EPI 2020) 44 09/21 Specimen Type: PLASMA No comment entered. Ordering Provider: NONI ANTON Report Released Date/Time : Oct 02, 2023 11:37 AM Reporting Lab: [facility] [address] [facility] [phone] 8 Performin g Lab: [facility] [address] [place] [phone] 8 [facility] HGA1C HEMOGLOBIN A1C/HEMOGLO BIN.TOTAL IN BLOOD 5.8 4.0 - 6.0 09/21 Specimen Type: BLOOD No comment entered. Ordering Provider: NONI ANTON Report Released Date/Time : Oct 02, 2023 11:37 AM Reporting Lab: [facility] [address] [place] [phone] 8 Performin g Lab: [address] [phone] 8 [facility] LIPID PANEL (MA) CHOLESTEROL [MASS/VOLUM E] IN SERUM OR PLASMA 134 mg/dL 0 - 200 09/21 Specimen Type: PLASMA No comment entered. Ordering Provider: NONI ANTON Report Released Date/Time : Oct 02, 2023 11:37 AM Reporting Lab: [facility] [address] [place] [address] [phone] 8 Performin g Lab: [address] [phone] 8 [facility] LIPID PANEL (MA) TRIGLYCERID E [MASS/VOLUM E] IN SERUM OR PLASMA 94 mg/dL 0 - 150 09/21 Specimen Type: PLASMA No comment entered. Ordering Provider: NONI ANTON Report Released Date/Time : Oct 02, 2023 11:37 AM Reporting Lab: [facility] [address] [place] [address] [phone] 8 Performin g Lab: [facility] [address] [place] [phone] 8 [facility] LIPID PANEL (MA) CHOLESTEROL IN LDL [MASS/VOLUM E] IN SERUM OR PLASMA BY CALCULATION 78 mg/dL 09/21 Specimen Type: PLASMA No comment entered. Ordering Provider: NONI ANTON Report Released Date/Time : Oct 02, 2023 11:37 AM Reporting Lab: [facility] [address] [place] [address] [phone] 8 Performin g Lab: [facility] [address] [id number] [facility] LIPID PANEL (MA) CHOLESTEROL IN HDL [MASS/VOLUM E] IN SERUM OR PLASMA 37 mg/dL 40 09/21 L Specimen Type: PLASMA No comment entered. Ordering Provider: NONI ANTON Report Released Date/Time : Oct 02, 2023 11:37 AM Reporting Lab: [facility] [address] [place] [id number] 8 Performin g Lab: [facility] [address] [place], [place] [id number] [facility] B12 COBALAMIN (VITAMIN B12) [MASS/VOLUM E] IN SERUM OR PLASMA 1094 pg/mL 213 - 816 09/21 H Specimen Type: SERUM No comment entered. Ordering Provider: NONI ANTON Report Released Date/Time : Oct 02, 2023 11:37 AM Reporting Lab: [place] [address] Performin g Lab: [place] [address] [facility] URINALYSI S (MA-EV) COLOR OF URINE Yellow [none] 09/21 Specimen Type: URINE No comment entered. Ordering Provider: NONI ANTON Report Released Date/Time : Oct 02, 2023 11:37 AM Reporting Lab: [facility] [address] [place] [address] 8 Performin g Lab: [facility] [address] [place] [address] 8 [facility] URINALYSI S (MA-EV) SPECIFIC GRAVITY OF URINE 1.024 09/21 Specimen Type: URINE No comment entered. Ordering Provider: NONI ANTON Report Released Date/Time : Oct 02, 2023 11:37 AM Reporting Lab: [place] [address] 8 Performin g Lab: [address] 8 [facility] URINALYSI S (MA-EV) UROBILINOGE N [MASS/VOLUM E] IN URINE BY TEST STRIP Normalmg /dL 0.1 - 1.0 09/21 Specimen Type: URINE No comment entered. Ordering Provider: NONI ANTON Report Released Date/Time : Oct 02, 2023 11:37 AM Reporting Lab: [facility] [address] [place] [address] 8 Performin g Lab: [facility] [address] [place] [address] 8 [facility] URINALYSI S (MA-EV) BILIRUBIN.T OTAL [PRESENCE] IN URINE BY TEST STRIP Negative mg/dL 09/21 Specimen Type: URINE No comment entered. Ordering Provider: NONI ANTON Report Released Date/Time : Oct 02, 2023 11:37 AM Reporting Lab: [place] [address] 8 Performin g Lab: [place] [address] 8 [facility] URINALYSI S (MA-EV) KETONES [MASS/VOLUM E] IN URINE BY TEST STRIP Negative mg/dL 09/21 Specimen Type: URINE No comment entered. Ordering Provider: NONI ANTON Report Released Date/Time : Oct 02, 2023 11:37 AM Reporting Lab: [place] [address] 8 Performin g Lab: [place] [address] 8 [facility] URINALYSI S (MA-EV) PROTEIN [MASS/VOLUM E] IN URINE BY TEST STRIP 20 mg/dL 09/21 H Specimen Type: URINE No comment entered. Ordering Provider: NONI ANTON Report Released Date/Time : Oct 02, 2023 11:37 AM Reporting Lab: [place] [address] 8 Performin g Lab: [place] [address] 8 [facility] URINALYSI S (MA-EV) PH OF URINE BY TEST STRIP 6.5 5.0 - 8.0 09/21 Specimen Type: URINE No comment entered. Ordering Provider: NONI ANTON Report Released Date/Time : Oct 02, 2023 11:37 AM Reporting Lab: [facility] [address] [place] [address] 8 Performin g Lab: [place] [address] 8 [facility] URINALYSI S (MA-EV) LEUKOCYTES [#/AREA] IN URINE SEDIMENT BY MICROSCOPY HIGH POWER FIELD 1-5/[HPF ] 0 - 5 09/21 Specimen Type: URINE No comment entered. Ordering Provider: NONI ANTON Report Released Date/Time : Oct 02, 2023 11:37 AM Reporting Lab: [place] [address] 8 Performin g Lab: [place] [address] 8 [facility] URINALYSI S (MA-EV) ERYTHROCYTE S [#/VOLUME] IN URINE SEDIMENT BY MICROSCOPY HIGH POWER FIELD 1-5/[HPF ] 0 - 5 09/21 Specimen Type: URINE No comment entered. Ordering Provider: NONI ANTON Report Released Date/Time : Oct 02, 2023 11:37 AM Reporting Lab: [place] [address] 8 Performin g Lab: [place] [address] 8 [facility] URINALYSI S (MA-EV) APPEARANCE OF URINE Clear 09/21 Specimen Type: URINE No comment entered. Ordering Provider: NONI ANTON Report Released Date/Time : Oct 02, 2023 11:37 AM Reporting Lab: [place] [address] 8 Performin g Lab: [place] [address] 8 [facility] URINALYSI S (MA-EV) HEMOGLOBIN [MASS/VOLUM E] IN URINE BY TEST STRIP 1+mg/dL 09/21 Specimen Type: URINE No comment entered. Ordering Provider: NONI ANTON Report Released Date/Time : Oct 02, 2023 11:37 AM Reporting Lab: [address] [place] [address] Performin g Lab: [facility] [address] [facility] [address] [facility] URINALYSI S (MA-EV) NITRITE [PRESENCE] IN URINE BY TEST STRIP Negative mg/dL 09/21 Specimen Type: URINE No comment entered. Ordering Provider: NONI ANTON Report Released Date/Time : Oct 02, 2023 11:37 AM Reporting Lab: [facility] [address] [facility] [address] Performin g Lab: [facility] [address] [place] [phone] [facility] URINALYSI S (MA-EV) LEUKOCYTE ESTERASE [PRESENCE] IN URINE BY TEST STRIP Negative 09/21 Specimen Type: URINE No comment entered. Ordering Provider: NONI ANTON Report Released Date/Time : Oct 02, 2023 11:37 AM Reporting Lab: [facility] [address] [place] [id number] 8 Performin g Lab: [place] [id number] 8 [facility] URINALYSI S (MA-EV) EPITHELIAL CELLS [#/AREA] IN URINE SEDIMENT BY MICROSCOPY LOW POWER FIELD 1-5/[HPF ] 0 - 5 09/21 Specimen Type: URINE No comment entered. Ordering Provider: NONI ANTON Report Released Date/Time : Oct 02, 2023 11:37 AM Reporting Lab: [facility] [address] [place] [id number] 8 Performin g Lab: [place] [id number] 8 [facility] URINALYSI S (MA-EV) MUCUS [PRESENCE] IN URINE SEDIMENT BY LIGHT MICROSCOPY RARE/[LP F] 09/21 Specimen Type: URINE No comment entered. Ordering Provider: NONI ANTON Report Released Date/Time : Oct 02, 2023 11:37 AM Reporting Lab: [facility] [address] [place] [phone] 8 Performin g Lab: [place] [address] [facility] URINALYSI S (MA-EV) GLUCOSE [PRESENCE] IN URINE Negative mg/dL 09/21 Specimen Type: URINE No comment entered. Ordering Provider: NONI ANTON Report Released Date/Time : Oct 02, 2023 11:37 AM Reporting Lab: [facility] [address] [place] [phone] Performin g Lab: [address] 8 [facility] URINE ALBUMIN PANEL (MA) ALBUMIN/CRE ATININE [MASS RATIO] IN URINE 12.6 mg/g - 30 09/21 Specimen Type: URINE No comment entered. Ordering Provider: NONI ANTON Report Released Date/Time : Oct 02, 2023 11:37 AM Reporting Lab: [address] 8 Performin g Lab: [place] [address] 8 [facility] URINE ALBUMIN PANEL (MA) CREATININE [MASS/VOLUM E] IN URINE 216 mg/dL 09/21 Specimen Type: URINE No comment entered. Ordering Provider: NONI ANTON Report Released Date/Time : Oct 02, 2023 11:37 AM Reporting Lab: [address] 8 Performin g Lab: [address] 8 [facility] URINE ALBUMIN PANEL (MA) MICROALBUMI N [MASS/VOLUM E] IN URINE 2.7 mg/dL 09/21 Specimen Type: URINE No comment entered. Ordering Provider: NONI ANTON Report Released Date/Time : Oct 02, 2023 11:37 AM Reporting Lab: [place] [phone] Performin g Lab: [address] 8 [facility] VITAMIN D, 25-HYDROX Y 25-HYDROXYV ITAMIN D3 [MASS/VOLUM E] IN SERUM OR PLASMA 38.8 ng/mL 30 - 96 09/21 Specimen Type: SERUM No comment entered. Ordering Provider: NONI ANTON Report Released Date/Time : Oct 02, 2023 11:37 AM Reporting Lab: [facility] [address] [facility] [address] [place] pardo Lab: [facility] [address] [facility] [address] [facility] Vital Signs Combined list of inpatient and outpatient Vital Signs from Department of [facility] and [facility], ranging from 12 months to all on record, depending upon the facility. Vital Sign Value Date Comments Source SYSTOLIC BLOOD PRESSURE 120 10/01/2024 09:19:31 [facility] DIASTOLIC BLOOD PRESSURE 74 10/01/2024 09:19:31 [facility] PULSE OXIMETRY 98 10/01/2024 09:19:31 [facility] WEIGHT 232.6 10/01/2024 09:19:31 [facility] BMI 33 kg/m2 10/01/2024 09:19:31 [facility] PAIN 0 10/01/2024 09:19:31 [facility] HEIGHT 71 10/01/2024 09:19:31 [facility] TEMPERATURE 97.6 10/01/2024 09:19:31 [facility] PULSE 55 10/01/2024 09:19:31 [facility] RESPIRATION 20 10/01/2024 09:19:31 [facility] SYSTOLIC BLOOD PRESSURE 138 2024 11:13:11 [facility] DIASTOLIC BLOOD PRESSURE 72 2024 11:13:11 [facility] PULSE OXIMETRY 98 2024 11:13:11 [facility] PAIN 0 2024 11:13:11 [facility] TEMPERATURE 97.3 2024 11:13:11 [facility] PULSE 53 2024 11:13:11 [facility] RESPIRATION 20 2024 11:13:11 [facility] Encounters Combined list of: 1) Encounters from Department of Veterans Affairs facilities going backup to the last 18 months, not all [place] inpatient encounters are included; 2) Encounters from the Department of Defense facilities going backup to 280 months. Location Location Details Encounter Type Encounter Number Reason For Visit Attending Provider ADM Date DC Date Status Disposition Source [facility] Outpatient Encounter [id number] 09/[address] 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 Outpatient Encounter [id number] 01/14 [facility] COMPRE OPH EXAM EST PT 1/> [id number] Diagnos is: ICD-10- CM H40.003 [place] coma, unspeci fied, bilCORNEL Dowling OD 02/19 [facility] Outpatient Encounter [id number] 06/16 [facility] [place] [facility] OFF[facility] O/P EST LOW 20 MIN [id number] Diagnos is: ICD-10- CM L57.0 Actinic keratos is TERESA,MELY I H 07/[address] 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 En[facility] [id number] 10/[address] 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 DESEANBRIAN PETTY 10/01 [facility] Outpatient Encounter [id number] 10/02 [facility] Encounter [id number] 10/18 [facility] Outpatient Encounter [id number] 10/18 [facility] [place] [id number] Diagnos is: ICD-10- CM 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 Outpatient Encounter [id number] 11/26 [facility] HEARING AID, DIGIT, BIN, BTE [id number] Diagnos is: ICD-10- CM H90.3 Sensori neural hearing loss, RICARDO Abebe TIN L 12/07 [facility] Outpatient Encounter [id number] 12/31 [facility] COMPRE OPH EXAM EST PT 1/ [id number] Diagnos is: ICD-10- CM H40.003 [place] coma, unspeci fied, CORNEL Gonzales OD 01/14 [facility] Outpatient Encounter [id number] 02/25 [facility] Social History Combined list of available smoking, tobacco, and other social history from Department of Defense and Veterans Affairs facilities. Social History Type Response Date Comment [facility] e Tobacco [facility] 2001-TOBACCO NEVER USED 12/24/2022 [facility] History of tobacco use PR-TOBACCO NEVER USED 12/26/2021 [facility]2020 [facility] History of tobacco use [facility]-TOBACCO NEVER USED 11/17/2019 [facility] History of tobacco use PR-TOBACCO NEVER USED 11/13/2018 [facility] History of tobacco use LIFETIME NON-USER OF TOBACCO 10/10/2010 [facility] History of tobacco use LIFETIME NON-USER OF TOBACCO 05/17/2010 [facility] History of tobacco use LIFETIME NON-USER OF TOBACCO 11/09/2009 [facility] History of tobacco use LIFETIME NON-USER OF TOBACCO 05/10/2009 [facility] History of tobacco use LIFETIME NON-USER OF TOBACCO 10/04/2008 [facility] History of tobacco use LIFETIME NON-USER OF TOBACCO 03/29/2008 [facility] History of tobacco use LIFETIME NON-USER OF TOBACCO 09/28/2007 [facility] History of tobacco use LIFETIME NON-USER OF TOBACCO 09/08/2007 [facility] Plan of Care List of future care activities from Department of Veterans Affairs facilities. Additional future care activities may be listed in the Assessment and Plan section. Date/Time Care Activity Care Activity Detail Facili ty 2025 AMBULATORY - MEDICINE AMBULATORY - MEDICI [facility] Advance Directives List of completed, amended, or rescinded Advance Directives on record at [facility] facilities. An actual copy of the Directive is not included. Date Advance Directive Provider Source 12/30/2019 ADVANCE DIRECTIVE DAKOTAH MELÉNDEZ [facility]
--- OUTSIDE RECORDS SUMMARY | 2025-03-02 12:04 | XMS_ITS | Encounter Summary ---
Author Organization [facility] Address [address] [place] [address] Care Team Providers Care Pulp Press Tender Name Role Phone Chester Richardson MD Primary Care Provider [phone] Avelino Balderas MD Unavailable [phone] Martin Newman MD Unavailable [phone] Mark Godwin MD Unavailable [phone] Encounter Details Date Type Department Care Team (Late st Contact Info) Description 06/07/2021 Hospital Follow-up Call [facility] [address] [place] [address] Toshia Bazzi, RN Social History Tobacco Use Types Packs/Day Years Used Date Smoking Tobacco: Never Smokeless Tobacco: Never Alcohol Use Standard Drinks/Week Comments No 0 (1 standard drink = 0.6 oz pur e alcohol) AUDIT-C Answer Date Recorded Frequency of Alcohol Consumption Never 01/08/2019 Average Number of Drinks 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019 Frequency of Binge Drinking 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12/25 PHQ-2 Answer Date Recorded PHQ-2 Score - If the patient scores above 3, please move on to questions 3-9 0 03/05/2021 Sex and Gender Information Value Date Recorded Sex Assigned at Male 01/04/2025 10:01 AM CDT Legal Sex Male 9:27 PM [employer] Gender Identity 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Sexual Orientation 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[place] , [place] exposure 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No t on file 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COVID-19 Exposure Response Date Recorded In the last month, have you been in contact with someone who was confirmed or suspected to have Coronavirus / COVID-19? No / Unsure 06/03/2021 6:32 AM CDT documented as of this encounter Functional Status * RETIRED Are you deaf or do you have serious difficulty hearing Answer Date of Assessment Author Status No 06/05/2021 3:36 PM CDT Activ e * RETIRED Are you blind or do you have serious difficulty seeing, even when wearing glasses? Answer Date of Assessment Author Status No 06/05/2021 3:38 PM CDT Activ e * Do you have serious difficulty walking or climbing stairs? Answer Date of Assessment Author Status No 06/05/2021 3:38 PM CDT Mason Decker RN Active * Do you have difficulty dressing or bathing? Answer Date of Assessment Author Status No 06/05/2021 3:38 PM CDT Mason Decker RN Active * Because of a physical, mental, or emotional condition, do you have difficulty doing errands alone such as visiting a doctor's office or shopping? Answer Date of Assessment Author Status No 06/05/2021 3:38 PM CDT Mason Decker RN Active documented as of this encounter Mental Status * Because of a physical, mental, or emotional condition, do you have serious difficulty concentrating, remembering, or making decisions? Answer Entry Date Author Status No 06/05/2021 3:38 PM CDT Mason Decker RN Active documented in this encounter Plan of Treatment Upcoming Encounters Date Type Department Care Team (Latest Contact Info) Description 03/17/2025 9:28 AM CDT Hospital Encounter [facility] [address] [place] [address] Nirav Rabago MD [address] [facility] [place] [address] 03/17/2025 9:28 AM CDT - 03/17/2025 10:15 AM CDT Surgery [facility] [address] [place], [place] [address] Nirav Rabago MD [address] [facility] [address] [place] [address] COLONOSCOPY WITH BIOPSY AND/OR POLYPECTOMY 07/11/2025 9:45 AM CDT Office [facility] [address] [address] Mark Godwin MD [address] [place], [place] [id number] Scheduled Procedures Name Priority Associated Diagnoses Date/Ti me COLONOSCOPY WITH BIOPSY Z86.0101 03/17/2025 9:28 AM CDT documented as of this encounter Visit Diagnoses Not on filedocumented in this encounter Care Teams Pulp Press Tender Relationship Specialty Start Date End Date Chester Richardson MD [address] [place] [address] PCP - General INTERNAL MEDICINE 02/18/19 Avelino Balderas MD [address] [place] [address] Physician UROLOGY 04/12/20 Martin Newman MD [address] [place] [address] FAMILY PRACTICE 12/01/24 Mark Godwin MD [address] [place] [address] Consulting Physician CARDIOVASCULAR DISEASE 02/25/25 documented as of this encounter
--- OUTSIDE RECORDS SUMMARY | 2025-03-02 12:04 | XMS_ITS | Encounter Summary ---
Author Organization [facility] Address [address] [place] [address] Care Team Providers Care Marketing Analyst Name Role Phone Chester Richardson MD Primary Care Provider [phone] Avelino Baldreas MD Unavailable [phone] Martin Newman MD Unavailable [phone] Mark Godwin MD Unavailable [phone] Encounter Details Date Type Department Care Team (Late st Contact Info) Description 05/03/2020 Prep for Procedure [facility] [address] [place] [address] Avelino Balderas MD [address] [facility] [place] [address] Social History Tobacco Use Types Packs/Day Years Used Date Smoking Tobacco: Never Smokeless Tobacco: Never Alcohol Use Standard Drinks/Week Comments No 0 (1 standard drink = 0.6 oz pur e alcohol) AUDIT-C Answer Date Recorded Frequency of Alcohol Consumption Never 01/08/2019 Average Number of Drinks 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019 Frequency of Binge Drinking 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12/25 Sex and Gender Information Value Date Recorded Sex Assigned at Male 01/04/2025 10:01 AM CDT 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 No / Unsure 05/05/2020 10:32 AM CDT documented as of this encounter Functional Status * RETIRED Are you deaf or do you have serious difficulty hearing Answer Date of Assessment Author Status No 01/04/2019 8:00 PM CDT Activ e * RETIRED Are you blind or do you have serious difficulty seeing, even when wearing glasses? Answer Date of Assessment Author Status No 01/04/2019 8:00 PM CDT Activ e * Do you have serious difficulty walking or climbing stairs? Answer Date of Assessment Author Status Yes 01/04/2019 8:00 PM CDT Gopal Funk RN Active * Do you have difficulty dressing or bathing? Answer Date of Assessment Author Status No 01/04/2019 8:00 PM CDT Gopal Funk RN Active * Because of a physical, mental, or emotional condition, do you have difficulty doing errands alone such as visiting a doctor's office or shopping? Answer Date of Assessment Author Status No 01/04/2019 8:00 PM CDT Gopal Funk RN Active documented as of this encounter Mental Status * Because of a physical, mental, or emotional condition, do you have serious difficulty concentrating, remembering, or making decisions? Answer Entry Date Author Status No 01/04/2019 8:00 PM CDT Gopal Funk RN Active documented in this encounter Plan of Treatment Upcoming Encounters Date Type Department Care Team (Latest Contact Info) Description 03/17/2025 9:28 AM CDT Hospital Encounter [facility] [address] [place] [address] Nirav Rabago MD [address] [facility], [address] [place] [address] 03/17/2025 9:28 AM CDT - 03/17/2025 10:15 AM CDT Surgery [facility] [address] [place] [address] Nirav Rabago MD [address] [facility] [address], [address] [place], [place] [address] COLONOSCOPY WITH BIOPSY AND/OR POLYPECTOMY 07/11/2025 9:45 AM CDT Office Visit [facility] [address] [place] [phone] Mark Godwin MD [address] [place] [address] Scheduled Procedures Name Priority Associated Diagnoses Date/Ti me COLONOSCOPY WITH BIOPSY Z86.0101 03/17/2025 9:28 AM CDT documented as of this encounter Results * PRE-SURGICAL/PRE-PROCEDURE CORONAVIRUS (COVID 19) (05/09/2020 11:52 AM CDT) CORONAVIRUS SARS COV 2 PCR (RESP) NOT DETECTED NOT DETECTED 05/11/2020 10:53 PM CDT [email or web address] [facility] Comment: A Not Detected (negative) test result for this test means that SARS- CoV-2 RNA was not present in the specimen above the limit of detection. A negative result does not rule out the possibility of COVID-19 and should not be used as the sole basis for treatment or patient management decisions. If COVID-19 is still suspected, based on exposure history together with other clinical findings, re-testing should be considered in consultation with public health authorities. Laboratory test results should always be considered in the context of clinical observations and epidemiological data in making a final diagnosis and patient management decisions. Please review the Fact Sheets and FDA authorized labeling available for health care providers and patients using the following websites: https://www.[employer].com/home/Covid-19/HCP/QuestIVD/fact- sheet.html https://www.[employer]/home/Covid-19/Patients/ QuestIVD/fact-sheet.html This test has been authorized by the FDA under an Emergency Use Authorization (EUA) for use by authorized laboratories. Due to the current public health emergency, [employer] is receiving a high volume of samples from a wide variety of swabs and media for COVID-19 testing. In order to serve patients during this public health crisis, samples from appropriate clinical sources are being tested. Negative test results derived from specimens received in non-commercially manufactured viral collection and transport media, or in media and sample collection kits not yet authorized by FDA for COVID-19 testing should be cautiously evaluated and the patient potentially subjected to extra precautions such as additional clinical monitoring, including collection of an additional specimen. Methodology: Nucleic Acid Amplification Test (NAAT) includes PCR or TMA Additional information about COVID-19 can be found at the [employer] website: www.[employer]karma/Covid19. Test performed at [email or web address] [facility] [address] [facility] [place] [address] Director: DES MONTEMAYOR DO,MPH NASOPHARYNGEAL SWAB / Unknown 05/09/2020 11:52 AM CDT us Avelino Balderas MD MICROBIOLOGY - GENERAL ORDERAB LES Final Result [email or web address] [address] [address] documented in this encounter Visit Diagnoses Diagnosis Pre-op exam- Primary Preoperative examination, unspecified documented in this encounter Additional Health Concerns Infection Onset Date Last Indicated Resolved Time COVID-19 Rule Out 05/09/2020 05/09/2020 05/11/2020 10:53 PM CDT documented as of this encounter Care Teams Marketing Analyst Relationship Specialty Start Date End Date Chester Richardson MD [address] [place] [address] PCP - General INTERNAL MEDICINE 02/18/19 Avelino Balderas MD [address] [place] [address] Physician UROLOGY 04/12/20 Martin Newman MD [address] [place] [address] FAMILY PRACTICE 12/01/24 Mark Godwin MD [address] [place] [address] Consulting Physician CARDIOVASCULAR DISEASE 02/25/25 documented as of this encounter
--- OUTSIDE RECORDS SUMMARY | 2025-03-02 12:04 | XMS_ITS | Encounter Summary ---
Author Organization [facility] Address [address] [place] [address] Care Team Providers Care Business Support Manager Name Role Phone Chester Richardson MD Primary Care Provider [phone] Avelino Balderas MD Unavailable [phone] Martin Newman MD Unavailable [phone] Mark Godwin MD Unavailable [phone] Encounter Details Date Type Department Care Team (Late st Contact Info) Description 02/19/2019 Abstract [facility] [address] [place] [address] Wilton William MD Social History Tobacco Use Types Packs/Day Years [...] AM CDT 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 Gender Identity 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Sexual Orientation 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[place] , 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No t on file 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documented as of this encounter Functional Status [...] Assessment Author Status No 01/04/2019 8:00 PM MATTIHAST Gopal Funk RN Active documented as of [...] Description 03/17/2025 9:28 AM CDT Hospital Encounter [facility] [address] [place] [address] Nirav Rabago MD [address] [facility], [address] [place] [address] 03/17/2025 9:28 AM CDT - 03/17/2025 10:15 AM CDT Surgery [facility] [address] [place] [address] Nirav Rabago MD [address] [facility], [address] [place] [address] COLONOSCOPY WITH BIOPSY AND/OR POLYPECTOMY 07/11/2025 9:45 AM CDT Office Visit [facility] AT [address] [place] [phone] Mark Godwin MD [address] [place] [address] Scheduled Procedures Name Priority Associated Diagnoses Date/Ti me COLONOSCOPY WITH BIOPSY Z86.0101 03/17/2025 9:28 AM CDT documented as of this encounter Visit Diagnoses Not on filedocumented in this encounter Additional Health Concerns Infection Onset Date Last Indicated Resolved Time COVID-19 Rule Out 05/09/2020 05/09/2020 05/11/2020 10:53 PM CDT documented as of this encounter Care Teams Business Support Manager Relationship Specialty Start Date End Date Chester Richardson MD [address] [place] [address] PCP - General INTERNAL MEDICINE 02/18/19 Avelino Balderas MD [address] [facility] [place] [address] Physician UROLOGY 04/12/20 Martin Newman MD [address] [place], [place] [phone] FAMILY PRACTICE 12/01/24 Mark Godwin MD [address] [place], [place] [address] Consulting Physician CARDIOVASCULAR DISEASE 02/25/25 documented as of this encounter
--- OUTSIDE RECORDS SUMMARY | 2025-03-02 12:04 | XMS_ITS | Encounter Summary ---
Author Organization [facility] Address [address] [place] [address] Care Team Providers Care Jewellery Designer Name Role Phone Chester Richardson MD Primary Care Provider [phone] Avelino Balderas MD Unavailable [phone] Martin Newman MD Unavailable [phone] Mark Godwin MD Unavailable [phone] Encounter Details Date Type Department Care Team (Late st Contact Info) Description 07/16/2023 Abstract [facility] [place] [address] Wilton William MD Social History Tobacco Use Types Packs/Day Years Used Date Smoking Tobacco: Never Passive Smoke Exposure: Never Smokeless Tobacco: Never Alcohol Use Standard Drinks/Week Comments No 0 (1 standard drink = 0.6 oz pur e alcohol) AUDIT-C Answer Date Recorded Frequency of Alcohol Consumption Never 01/08/2019 Average Number of Drinks 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019 Frequency of Binge Drinking 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12/25 PHQ-2 Answer Date Recorded Patient Health Questionnaire-2 Score 0 02/24/2023 Sex and Gender Information Value Date Recorded Sex Assigned at Male 01/04/2025 10:01 AM CDT 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 Gender Identity 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Sexual Orientation 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[place] , 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No t on [...] Date Author Status No 06/05/2021 3:38 PM Mason Pinto RN Active documented in this encounter Plan of Treatment Upcoming Encounters Date Type Department Care Team (Latest Contact Info) Description 03/17/2025 9:28 AM CDT Hospital Encounter [facility] [address] [place] [address] Nirav Rabago MD [address] [facility], [address] [place] [address] 03/17/2025 9:28 AM CDT - 03/17/2025 10:15 AM CDT Surgery [facility] [address] [place], [place] [address] Nirav Rabago MD [address] [facility], [address] [place] [address] COLONOSCOPY WITH BIOPSY AND/OR POLYPECTOMY 07/11/2025 9:45 AM CDT Office Visit [facility] AT [address] [place] [phone] Mark Godwin MD [address] [place], [place] [address] Scheduled Procedures Name Priority Associated Diagnoses Date/Ti me COLONOSCOPY WITH BIOPSY Z86.0101 03/17/2025 9:28 AM CDT documented as of this encounter Visit Diagnoses Not on filedocumented in this encounter Care Teams Jewellery Designer Relationship Specialty Start Date End Date Chester Richardson MD [address] [place] [place] [address] PCP - General INTERNAL MEDICINE 02/18/19 Avelino Balderas MD [address] [place] [place] [address] Physician UROLOGY 04/12/20 Martin Newman MD [address] [place], [place] [phone] FAMILY PRACTICE 12/01/24 Mark Godwin MD [address] [place], [place] [phone] Consulting Physician CARDIOVASCULAR DISEASE 02/25/25 documented as of this encounter
--- OUTSIDE RECORDS SUMMARY | 2025-03-02 12:04 | XMS_ITS | Clinical Summary ---
Author Organization [facility] Address [address], [facility] [address] [place] [address] Phone Care Team Providers Care Sand Blaster Name Role Phone Trent Cancino MD Primary Care Provider [phone] Trent Cancino MD Unavailable [phone] Johnathon Faith MD Unavailable [phone] Allergies Active Allergy Reactions Criticality Noted Date Comments Lisinopril Unknown Medium 07/04/2011 Medications metoprolol Succinate (TOPROL-XL) 25 MG TABLET SR 24 HR 12.5 mg. 07/19/2021 Active levothyroxine (SYNTHROID) 100 MCG Tablet Take 100 mcg by mouth daily. 08/04/2023 Active amLODIPine (NORVASC) 10 MG Tablet 10 mg. 07/10/2021 Active tamsulosin (FLOMAX) 0.4 MG Capsule 0.4 mg. 12/26/2021 Active atorvastatin (LIPITOR) 40 MG Tablet 20 mg. 06/24/2023 Active aspirin 81 MG Chewable Tablet Take 81 mg by mouth. 06/09/2021 Active Cyanocobalamin (VITAMIN B-12) 1000 MCG Tablet 1,000 mcg. 12/15/2020 Ac tive Vitamin D3 1000 UNIT Tablet 25 mcg. 06/24/2023 Active Active Problems Problem Noted Date Diagnosed Date Lymphocytosis 08/12/2023 Family History Medical History Relation Name Comments Cancer Daughter leukemia Aneurysm Father brain Congestive Heart Failure Mother Relation Name Status Comments Daughter Father Mother Social History Tobacco Use Types Packs/Day Years Used Date Smoking Tobacco: Never Smokeless Tobacco: Never Tobacco Cessation:Counseling Given: Not Answered Alcohol Use Standard Drinks/Week Comments Never 0 (1 standard drink = 0.6 oz pur e alcohol) Sex and Gender Information Value Date Recorded Sex Assigned at 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Legal Sex Male 8:22 AM CDT Gender Identity 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Sexual Orientation 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Last Filed Vital Signs Vital Sign Reading Time Taken Comments Blood Pressure 148/72 06/16/2024 9:17 AM CDT Pulse 54 06/16/2024 9:17 AM CDT Temperature 36.6 C (97.8 F) 06/16/2024 9:17 AM CDT Respiratory Rate - - Oxygen Saturation 97% 06/16/2024 9:17 AM CDT Inhaled Oxygen Concentration - - Weight 108 kg (238 lb) 06/16/2024 9:17 AM CDT Height 176.5 cm (5' 9.5 ) 06/16/2024 9:17 AM CDT Body Mass Index 34.64 06/16/2024 9:17 AM CDT Plan of Treatment Upcoming Encounters Date Type Department Care Team (Late st Contact Info) Description 06/15/2025 1:00 PM CDT Office Visit [facility] [address] [place] [phone] Johnathon Faith MD [address] [address] Health Maintenance Due Date Last Done Comments Hepatitis C Virus (HCV) Screening 1950 Respiratory Syncytial Virus (RSV) Immunization (Adult) (1 - 1-dose 75+ series) 2023 Influenza Immunization (#1) 2024 12/04/2023, 10/22/2022, 10/16/2022, Additional history exists SARS-COV-2 Immunization ( season) 2024 10/02/2022, 09/12/2021, 01/17/2021, Additional history exists DTaP/Tdap/Td Immunization Discontinued 12/24/2018, Pneumococcal Immunization (50+ years) Completed 12/24/2018, 06/24/2016 TdaP Immunization Completed 12/24/2018 Colorectal Cancer Screening Discontinued Immunochemical Fecal Occult Blood Discontinued 01/24/2019 Zoster Immunization Completed 05/30/2020, 0 Cologuard Discontinued Colonoscopy High Risk Discontinued Colonoscopy Discontinued Hepatitis B Immunization Aged Out No longer eligible based on patient's age to complete this topic Meningococcal Immunization (ACWY) Aged Out No longer eligible based on patient's age to complete this topic Rotavirus Immunization Aged Out No lo nger eligible based on patient's age to complete this topic Insurance MEDICARE [facility] Care Teams Sand Blaster Relationship Specialty Start Date End Date Trent Cancino MD [address] [place], [place] [address] PCP - General Sleep Medicine 07/31/23 Trent Cancino MD [address] [place], [place] [address] Referring Provider Sleep Medicine 07/31/23 Johnathon Faith MD [address] [place] [address] Consulting Physician Oncology 07/31/23
--- OUTSIDE RECORDS SUMMARY | 2025-03-02 12:04 | XMS_ITS | Encounter Summary ---
Author Organization [facility] Address [address] [place] [address] Care Team Providers Care Retail Store Manager Name Role Phone Chester Richardson MD Primary Care Provider [phone] Avelino Balderas MD Unavailable [phone] Martin Newman MD Unavailable [phone] Mark Godwin MD Unavailable [phone] Encounter Details Date Type Department Care Team (Late st Contact Info) Description 06/05/2021 Hospital Follow-up Call [facility] [address] [place] [address] Toshia Bazzi, RN Social History [...] AM CDT 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 No / Unsure 06/03/2021 6:32 AM CDT documented as of this encounter Functional Status * Question Answer Date of Assessment Author Status Do you have serious difficulty walking or climbing stairs? No 06/05/2021 3:38 PM CDT Mason Decker RN Act bala Do you have difficulty dressing or bathing? No 06/05/2021 3:38 PM CDT Mason Decker RN Active Because of a physical, mental, or emotional condition, do you have difficulty doing errands alone such as visiting a doctor's office or shopping? No 06/05/2021 3:38 PM CDT Mason Decker RN Acti ve * RETIRED Are you deaf or do [...] Assessment Author Status No 06/05/2021 3:38 PM Mason Pinto RN Active documented as of this encounter Mental Status * Question Answer Entry Date Author Status Because of a physical, mental, or emotional condition, do you have serious difficulty concentrating, remembering, or making decisions? No 06/05/2021 3:38 PM CDT Mason Decker [...] Description 03/17/2025 9:28 AM CDT Hospital Encounter [facility] [address] [place], [place] [address] Nirav Rabago MD [address] [facility], [address] [place] [address] 03/17/2025 9:28 AM CDT - 03/17/2025 10:15 AM CDT Surgery [facility] [address] [place], [place] [address] Nirav Rabago MD [address] [facility], [address] [place] [address] COLONOSCOPY WITH BIOPSY AND/OR POLYPECTOMY 07/11/2025 9:45 AM CDT Office Visit [facility] AT [address] [place] [address] Mark Godwin MD [address] [place], [place] [phone] Scheduled Procedures Name Priority Associated Diagnoses Date/Ti me COLONOSCOPY WITH BIOPSY Z86.0101 03/17/2025 9:28 AM CDT documented as of this encounter Visit Diagnoses Not on filedocumented in this encounter Care Teams Retail Store Manager Relationship Specialty Start Date End Date Chester Richardson MD [address] [place] [address] PCP - General INTERNAL MEDICINE 02/18/19 Avelino Balderas MD [address] [place] [address] Physician UROLOGY 04/12/20 Martin Newman MD [address] [place] [address] FAMILY PRACTICE 12/01/24 Mark Godwin MD [address] [place] [address] Consulting Physician CARDIOVASCULAR DISEASE 02/25/25 documented as of this encounter
--- OUTSIDE RECORDS SUMMARY | 2025-03-02 12:04 | XMS_ITS | Encounter Summary ---
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 Gender Identity 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Sexual Orientation 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[place] , 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No t on [...] Description 03/17/2025 9:28 AM CDT Hospital Encounter [facility] [address] [place], [place] [address] Nirav Rabago MD [address] [facility], [address] [place] [address] 03/17/2025 9:28 AM CDT - 03/17/2025 10:15 AM CDT Surgery [facility] [address] [place], [place] [address] Nirav Rabago MD [address] [facility], [address] [place] [address] COLONOSCOPY WITH BIOPSY AND/OR POLYPECTOMY 07/11/2025 9:45 AM CDT Office Visit [facility] AT [address] [place] [phone] Mark Godwin MD [address] [place] [address] Scheduled Procedures Name Priority Associated Diagnoses Date/Ti me COLONOSCOPY WITH BIOPSY Z86.0101 03/17/2025 9:28 AM CDT documented as of this encounter Goals Goal Patient Goal Type Associated Problems Recent Progress Patient-Stated? Author Autogenerat ed Goal Care Plan Autogenerated Problem No Celsa Noble RN documented as of this encounter Visit Diagnoses Not on filedocumented in this encounter Additional Health Concerns Active Problems Noted Date Diagnosed Date Autogenerated Problem 02/09/2025 documented as of this encounter Care Teams Regulatory Submissions Specialist Relationship Specialty Start Date End Date Chester Richardson MD [address] [place] [address] PCP - General INTERNAL MEDICINE 02/18/19 Avelino Balderas MD [address] [place] [address] Physician UROLOGY 04/12/20 Martin Newman MD [address] [place], [place] [address] FAMILY PRACTICE 12/01/24 Mark Godwin MD [address] [facility] [place], [place] [phone] Consulting Physician CARDIOVASCULAR DISEASE 02/25/25 documented as of this encounter
--- OUTSIDE RECORDS SUMMARY | 2025-03-02 12:05 | XMS_ITS | Encounter Summary ---
Author Name [facility] [place] Organization [facility] [place] Address [address] [place] [address] Care Team Providers Care Benefits Assistant Name Role Phone DESEAN BRIAN Unavailable Unavailable Insurance Providers: All historical and [...] MEDIC ARE SUPPL EMEMT Nov 27, 2023 [id number] [phone] MELINA, ADRIANA PATIENT ANTHEM [place] MEDICARE SUPPLEMEN GENA MEDIC ARE SUPPL EMEMT Nov 27, 2023 [id number] [phone] MELINA, ADRIANA PATIENT ANTHEM [place] MEDICARE SUPPLEMEN GENA MEDIC ARE SUPPL EMENT Nov 27, 2023 [id number] [phone] MELINA, ADRIANA PATIENT [place] MEDICARE SUPPLEMEN GENA MEDIC ARE SUPPL EMEMT Nov 27, 2023 [id number] [phone] MELINA, ADRIANA PATIENT MEDICARE (WNR) MEDICARE (M) PART A Jun 27, 2013 PART A [id number] MELINA, ADRIANA PATIENT MEDICARE (WNR) MEDICARE (M) PART B Jun 27, 2013 PART B [id number] [phone] ADRIANA SUMMERS PATIENT MEDICARE (WNR) MEDICARE (M) PART A Jun 27, 2013 PART A [id number] [phone] ADRIANA SUMMERS PATIENT MEDICARE (WNR) MEDICARE (M) PART B Jun 27, 2013 PART B [id number] [phone] MELINA, ADRIANA PATIENT Selected Encounter This section includes the information on record at [place] for the Encounter. Date/Time Encounter Type Encounter Description Reason Provider Source Jan 14, 2025 10:30 AM COMPRE OPH EXAM EST PT 1/> OPTOMETRY ICD-10-CM H40.003 Preglaucoma, unspecified, bilateral LARS,ELBA LESLIE M OD I[facility] Encounter Template Text not used by [facility] Assessments - Encounter Diagnoses This section includes the primary and secondary diagnoses documented for the Encounter. Date/Time Primary/Secondary Diagnosis Diagnosis Name Provider Source Jan 25, 2025 01:49 PM PRIMARY Preglaucoma, unspecified, bilateral LARS,ELBA LESLIE M OD [facility] Jan 25, 2025 01:49 PM SECONDARY Dermatochalasis of left eye, unspecified eyelid LARS,[facility]BA [facility]LIE [facility] Jan 25, 2025 01:49 PM SECONDARY Dermatochalasis of right eye, unspecified eyelid LARS,ELBA LESLIE M OD [facility] Jan 25, 2025 01:49 PM SECONDARY Hypermetropia, bilateral LARS,ELBA LESLIE M OD [facility] Jan 25, 2025 01:49 PM SECONDARY Presbyopia LARS,ELBA LESLIE M OD [facility] Jan 25, 2025 01:49 PM SECONDARY Unspecified astigmatism, bilateral LARS,ELBA LESLIE M OD [facility] Plan of Treatment: Future Appointments (+ 6 months) and Future Tests (+/- 45 days) The Plan of Treatment section includes future care activities for the patient from all [place] treatmentfacilities. This section includes future appointments and future orders which are active, pending or scheduled. Future Appointments This section includes appointments that were scheduled to occur 6 months from the date of the Encounter, up to a maximum of 20 appointments. The data comes from all [facility]. Appointment Date/Time Appointment Type Appointme nt Facility Name Jan 19, 2025 02:00 PM AMBULATORY - NONE [facility] [employer] [facility] 2025 10:30 AM AMBULATORY - MEDICINE [facility] Jul 11, 2025 09:45 AM AMBULATORY - NONE [facility] Active, Pending, and Scheduled Orders This section includes a listing of several types of active, pending, and scheduled orders, including clinic medications orders, diagnostic test orders, procedure orders and consult orders; where the start date of the order is 45 days before the date of the Encounter or 45 days after the date of theEncounter. The data comes from all [facility]. Test Date/Time Test Type Test Details Facility Name February 25, 2025 12:22 PM [id number] Cons Motor Grader Operator's Choice [facility] Social History: Smoking Status (Most current) and Tobacco Use (All prior to encounter date) This section includes the most current, and the historical, smoking and tobacco- related health factors from the [place] facility where the Encounter took place. Current Smoking Status This section includes the most current smoking, or tobacco-related health factor, from the [place] facility where the Encounter took place. Date/Time Current Smoking Status Comment Rolando [email or web address] Sep 08, 2007 02:21 PM LIFETIME NON-USER OF TOBACCO [facility] Advance Directives: All historical and current Section Date Range: From patient's date of to the date document was created. This section includes ALL of a patient's completed or amended [place] Advance and Rescinded Directives. The entries below indicate that a directive exists for the patient, but an actual copy is not included with this document. The data comes from all [facility]. Date Advance Directives Provider Source Dec 30, 2019 ADVANCE DIRECTIVE DAKOTAH MELÉNDEZ [facility] Encounter Notes: All associated encounter notes This section contains the clinical notes associated to the Encounter. Date/Time Encounter Note(s) Provider Source March 01, 2025 10:37 AM OPTOMETRY NOTE: LOCAL TITLE: EYEGLASS PRESCRIPTION NOTE MA STANDARD TITLE: OPTOMETRY NOTE DATE OF NOTE: MARCH 01, 2025@10:37 ENTRY DATE: MARCH 01, 2025@10:37:23 AUTHOR: CORNEL SOUSA EXP COSIGNER: URGENCY: STATUS: COMPLETED DATE OF LAST EYE EXAM:MARCH 01, 2025 OD +2.00-1.86t489 20/25 OS +1.75-2.00a009 20/20- add +2.50 LENS MATERIAL: Polycarbonate LENS TYPE: PAL - Previous wearer Other Add Ons: Photochromic lenses included due to medical condition Additional Comments: /kaity/ CORNEL SOUSA OD OPTOMETRY FIRE BOAT ENGINEER Signed: 03/01/2025 10:37 CORNEL SOUSA OD [facility] Jan 14, 2025 04:14 PM OPTOMETRY CONSULT: LOCAL TITLE: VISUAL FIELD CONSULT RESULTS MA STANDARD TITLE: OPTOMETRY CONSULT DATE OF NOTE: JAN 14, 2025@16:14 ENTRY DATE: JAN 14, 2025@16:14:30 AUTHOR: CORNEL SOUSA EXP COSIGNER: URGENCY: STATUS: COMPLETED Visual field testing completed. /kaity/ CORNEL SOUSA OD OPTOMETRY FIRE BOAT ENGINEER Signed: 01/14/2025 16:14 [facility]SA [facility] Jan 14, 2025 04:14 PM OPTOMETRY CONSULT: LOCAL TITLE: OCT CONSULT RESULTS MA STANDARD TITLE: OPTOMETRY CONSULT DATE OF NOTE: JAN 14, 2025@16:14 ENTRY DATE: JAN 14, 2025@16:14:37 AUTHOR: CORNEL SOUSA EXP COSIGNER: URGENCY: STATUS: COMPLETED OCT consult completed. /kaity/ CORNEL SOUSA OD OPTOMETRY FIRE BOAT ENGINEER Signed: 01/14/2025 16:14 CORNEL SOUSA OD [facility] Jan 14, 2025 10:43 AM OPTOMETRY NOTE: LOCAL TITLE: EYE CLINIC NOTE MA STANDARD TITLE: OPTOMETRY NOTE DATE OF NOTE: JAN 14, 2025@10:43 ENTRY DATE: JAN 14, 2025@10:43:37 AUTHOR: CORNEL SOUSA EXP COSIGNER: URGENCY: STATUS: COMPLETED PATIENT NAME: ADRIANA SUMMERS AGE: 74 see tech note today Today's exam: LISINOPRIL, SIMVASTATIN HGA1C 5.8 % 09/21/2024 09:19 GLUCOSE 93 mg/dL 09/21/2024 09:19 120/74 (10/01/2024 09:19) Refraction OD +2.00-1.65s105 20/25 OS +1.75-2.15h868 20/20- add +2.50 SLE lids/lashes:dermatochalasis ul ou conj/sclera:tr injection ou cornea:clean tear film:smooth iris:-nv ou, blue angles:3/3 lens:bare ns ou 1 gtt 1%Mydriacyl and 2.5%Phenylephrine c/d:0.45 ou w/extensive ppa ou, distinct rim margins, healthy rim tissue ou macula:no maculopathy ou periphery:no holes or breaks ou OCT (today) OD avg RNFL thickness 88um OS avg RNFL thickness 81um HVF (today) OD few inf defects, high FL, MSD -3.11 OS enlarged blind spot, MSD -3.61 imp: 1. 20/25 od, 20/20- os 2. hyperopia ou w/astigmatism ou and presbyopia ou 3. low risk glc suspect ou iop 16/17 (Tp) w/out meds h/o iop 15/17 (Tp), 18/20, 18/16, 16/16, 16/17, 18/16 on xal qhs ou gonio unoccludable (01/2023) Pachs OD 555, OS 556 4. dermatochlasis ul ou plan: 1. rtc 1 yr for dfe, hvf, oct onh, gonio 2. discussed above with patient pt declined printed med rec /es/ CORNEL SOUSA OD OPTOMETRY FIRE BOAT ENGINEER Signed: 01/14/2025 16:14 CORNEL SOUSA OD [facility] Jan 14, 2025 10:15 AM OPTOMETRY TECHNICI AN NOTE: LOCAL TITLE: CATALOGUE MAKER NOTE MA STANDARD TITLE: OPTOMETRY RESIDENT PHYSICIAN NOTE DATE OF NOTE: JAN 14, 2025@10:15 ENTRY DATE: JAN 14, 2025@10:15:29 AUTHOR: LIZZETTE REAL EXP COSIGNER: URGENCY: STATUS: COMPLETED Chief complaint:Pt has no new vision complaints. [ ]CA [ ]CVA [ ]RI [ ]none since last visit [facility] - Lab Tests Selected Collection DT Specimen Test Name Result Units Ref Range 09/21/2024 09:19 BLOOD HGA1C 5.8 % 4.0 - 6.0 120/74 (10/01/2024 09:19)LISINOPRIL, SIMVASTATIN DONOVAN:Copied from 02/20/2024 imp: 1. 20/20- od, os 2. hyperopia ou w/astigmatism ou 3. low risk glc suspect ou iop 15/17 (Tp) w/out meds h/o iop 18/20, 18/16, 16/16, 16/17, 18/16 on xal qhs ou gonio unoccludable (01/2023) Pachs OD 555, OS 556 plan: 1. cc opt 1 yr 2. discussed above with patient hrx:01/2023 OD +1.75 -1.25 X100 Add:+2.25 OS +2.50 -2.25 X85 Add:+2.25 VAcc OD 20/25+2 OS 20/20 PUPILS: PERRL, neg APD OPTHALMIC MEDICATIONS ADMINISTERED @1013 PER PROVIDER DIRECTION Fluorescein Sodium and Benoxinate Hydrochloride 1gtt OU Tropicamide 1% 1gtt OU Phenylephrine 2.5% 1gtt OU TONOPEN @1013 OD:16 OS:17 /es/ LIZZETTE REAL [employer] Signed: 01/14/2025 10:18 [facility]
== END 2025-03-02 11:18 | disposition home or self-care (01) ==
PROVIDERS: PCP Urology; Visit Provider Urology
DX: N20.0 Calculus of kidney (principal)
CPT/HCPCS: 74018